=== PATIENT | female | born 1985 | race Caucasian/White ===

== ENCOUNTER 2017-05-09 16:32 | Emergency (ER) | payer SELFPAY ==
--- NOTE | 2017-05-09 17:22 | ER Document Report ---
ED General Pain - General Chief Complaint: Rib Pain Stated Complaint: FALL/HEADACHE,RIGHT SIDE RIB PAIN Time Seen by Provider: 05/09/17 17:11 Notes: 32 yo female c/o migraine headache x 3 days. right temporal, throbbing. Typical headache for patient. Usually takes Zomig for headache but is out of medication. + nausea, no vomiting. + photosensitivity. no fever or neck pain Pt also c/o right rib pain, reports she fell down stairs after drinking 2 nights ago. denies LOC or neck pain. hurts to breathe TRAVEL OUTSIDE OF THE [place] IN LAST 30 DAYS: No - HPI Similar symptoms previously: Yes Recently seen / treated by doctor: No - Related Data Allergies/Adverse Reactions: No Known Allergies Allergy (Verified 05/09/17 16:51) Past Medical History - General Information source: Patient - Social History Smoking Status: Current Every Day Smoker Frequency of alcohol use: Social Drug Abuse: None Lives with: Family Family History: Reviewed & Not Pertinent - Past Medical History Cardiac Medical History: Denies: Hx Heart Attack, Hx Hypertension Pulmonary Medical History: Denies: Hx Asthma Neurological Medical History: Reports: Hx Seizures - pnuemonia 2/3years old, had seizure X1. Denies: Hx Cerebrovascular Accident Renal/ Medical History: Denies: Hx Peritoneal Dialysis GI Medical History: Denies: Hx Hepatitis, Hx Hiatal Hernia, Hx Ulcer Infectious Medical History: Denies: Hx Hepatitis Past Surgical History: Reports: Hx Section - x 1, Hx Oral Surgery - wisdom teeth. Denies: Hx Hysterectomy, Hx Mastectomy, Hx Open Heart Surgery, Hx Pacemaker - Immunizations Hx Diphtheria, Pertussis, Tetanus Vaccination: No Review of Systems - Review of Systems Constitutional: No symptoms reported EENT: No symptoms reported Cardiovascular: No symptoms reported Respiratory: See HPI Gastrointestinal: No symptoms reported Genitourinary: No symptoms reported Female Genitourinary: No symptoms reported Musculoskeletal: See HPI Skin: No symptoms reported Hematologic/Lymphatic: No symptoms reported Neurological/Psychological: No symptoms reported Physical Exam - Vital signs Vitals: Temp Pulse Resp BP Pulse Ox 99.1 F 70 16 162/105 H 100 05/09/17 16:51 05/09/17 16:51 05/09/17 16:51 05/09/17 16:51 05/09/17 16:51 Interpretation: Normal - General General appearance: Alert In distress: None - HEENT Head: Normocephalic, Atraumatic Eyes: Normal Conjunctiva: Normal Extraocular movements intact: Yes Pupils: PERRL Tympanic membrane: Normal Mucous membranes: Moist Pharynx: Normal Neck: Normal, Supple - Respiratory Respiratory status: No respiratory distress Chest status: Tender Breath sounds: Normal Chest palpation: Tender - right lateral chest wall, Ecchymosis - left lateral chest wall - Cardiovascular Rhythm: Regular Heart sounds: Normal auscultation Murmur: No - Abdominal Inspection: Normal Distension: No distension Bowel sounds: Normal Tenderness: Nontender Organomegaly: No organomegaly - Back Back: Normal, Nontender - Extremities General upper extremity: Tender General lower extremity: Normal inspection, Nontender, Normal color, Normal ROM , Normal temperature, Normal weight bearing. No: Kiana's sign Arm: Ecchymosis - left upper arm - Neurological Neuro grossly intact: Yes Cognition: Normal Orientation: AAOx4 [place] Coma Scale Eye Opening: Spontaneous [place] Coma Scale Verbal: Oriented [place] Coma Scale Motor: Obeys Commands [place] Coma Scale Total: 15 Speech: Normal Motor strength normal: LUE, RUE, LLE, RLE Sensory: Normal - Psychological Associated symptoms: Normal affect, Normal mood - Skin Skin Temperature: Warm Skin Moisture: Dry Skin Color: Normal Course - Re-evaluation Re-evalutation: 05/09/17 18:19 xray negative for fracture. results reviewed with patient. 05/09/17 18:56 pt's headache improved after meds. low suspicion for stroke, SAB, meningitis. pt neurologically intact. pt stable for discharge - Vital Signs Vital signs: Temp Pulse Resp BP Pulse Ox 99.1 F 70 16 162/105 H 100 05/09/17 16:51 05/09/17 16:51 05/09/17 16:51 05/09/17 16:51 05/09/17 16:51 Discharge - Discharge Clinical Impression: Contusion of rib on right side Qualifiers: Encounter type: initial encounter Qualified Code(s): S20.211A - Contusion of right front wall of thorax, initial encounter Headache Qualifiers: Headache type: unspecified Headache chronicity pattern: acute headache Intractability: not intractable Qualified Code(s): R51 - Headache Instructions: Rib Contusion ([facility]), Headache ([facility]), Toradol Injection ([facility]), Reglan ([facility]), Antinausea Medication ([facility]), Imitrex Tablets ([facility]) Additional Instructions: Your xray is negative for fracture Take medication as prescribed Follow up with your primary if symptoms persist Return to ER for any worsening Prescriptions: Hydrocodone/Acetaminophen [Telferner 5-325 Tablet] 1 - 2 tab PO ASDIR PRN #15 tab PRN Reason: Ondansetron HCl [Zofran 8 mg Tablet] 8 mg PO Q6H PRN #20 tablet PRN Reason: Rizatriptan Benzoate [Maxalt] 10 mg PO ONCE PRN #9 tablet PRN Reason: Forms: Elevated Blood Pressure Referrals: MITESH CAPUTO MD [Primary Care Provider] - Follow up as needed
[2017-05-09] MEDS ORDERED: METOCLOPRAMIDE HCL INJ/PF 10 MG/2 ML SDV IV ONE (17:24)
[2017-05-09] MEDS ORDERED: DIPHENHYDRAMINE HCL 50 MG/ML VIAL IV ONE (17:24)
[2017-05-09] MEDS ORDERED: KETOROLAC TROMETHAMINE INJ/PF 30 MG/1 ML SDV IV ONE (17:24)
[2017-05-09] MEDS ORDERED: NORMAL SALINE 1000 ML 1,000 ML IV PRN (18:21)
--- NOTE | 2017-05-09 18:45 | RADIOLOGY REPORT (SQ) ---
EXAM DESCRIPTION: RIBS RIGHT W/PA CHEST COMPLETED DATE/TIME: 05/09/2017 6:36 pm REASON FOR STUDY: fell down stairs COMPARISON: None. TECHNIQUE: Frontal view of the chest and additional views of the right ribs acquired. NUMBER OF VIEWS: Three view.3 LIMITATIONS: None. FINDINGS: FRONTAL CXR: No pneumothorax. No pleural effusion. No atelectasis or infiltrates. RIBS: No displaced rib fractures. No lytic or blastic bony lesions. OTHER: No other significant finding. IMPRESSION: NO PNEUMOTHORAX. NO DISPLACED RIB FRACTURES. COMMENT: SITE OF TRAUMA/COMPLAINT MARKED/STAMP COMPLETED: NO. TECHNICAL DOCUMENTATION: JOB ID: [id number] [employer]- All Rights Reserved
[2017-05-09] MEDS ORDERED: OXYCODONE-ACETAMINOPHEN 5-325 MG TABLET PO ONE (20:15)
[2017-05-09 20:40] VITALS: BP 151/105
== END 2017-05-09 20:25 | disposition home or self-care (01) ==
LOC: ER 16:32
DX: S20.211A Contusion of right front wall of thorax, initial encounter (principal); S20.212A Contusion of left front wall of thorax, initial encounter; S40.022A Contusion of left upper arm, initial encounter; W10.9XXA Fall (on) (from) unspecified stairs and steps, initial encounter; G43.909 Migraine, unspecified, not intractable, without status migrainosus; F17.200 Nicotine dependence, unspecified, uncomplicated
CPT/HCPCS: 99283; 96361; 96374; 96375; 71101; J1200; J1885; J2765; J7030

== ENCOUNTER 2017-11-20 18:57 | Emergency (ER) | payer OTHER ==
[2017-11-20] MEDS ORDERED: KETOROLAC TROMETHAMINE INJ/PF 30 MG/1 ML SDV IV ONE (20:14)
--- NOTE | 2017-11-20 20:16 | ER Document Report ---
HPI - HPI Pain Level: 3 Notes: Patient is a 32-year-old female who presents to the ED complaining of nasal congestion/discharge, dry nonproductive cough, fever, LUX, body ache 1 day. Patient states that she is still eating and drinking without difficulties, but does have a decreased p.o. intake. She is still urinating normally having normal bowel movements. Patient has been using some [id number] meds for symptoms. She denies any significant past medical history including cardiopulmonary history and immunocompromised conditions. Patient denies any smoking or IV drug use. Denies any current headache, neck pain, sore throat, chest pain, palpitations, syncope, shortness of breath, wheeze, dyspnea, abdominal pain, nausea/vomiting/diarrhea, urinary retention, dysuria, hematuria , or rash. - ROS Systems Reviewed and Negative: Yes All other systems reviewed and negative - REPRODUCTIVE Reproductive: DENIES: : Past Medical History - Social History Smoking Status: Never Smoker Family History: Reviewed & Not Pertinent - Past Medical History Cardiac Medical History: Denies: Hx Heart Attack, Hx Hypertension Pulmonary Medical History: Denies: Hx Asthma Neurological Medical History: Reports: Hx Seizures - pnuemonia 2/3years old, had seizure X1. Denies: Hx Cerebrovascular Accident Renal/ Medical History: Denies: Hx Peritoneal Dialysis GI Medical History: Denies: Hx Hepatitis, Hx Hiatal Hernia, Hx Ulcer Infectious Medical History: Denies: Hx Hepatitis Past Surgical History: Reports: Hx Section - x 1, Hx Oral Surgery - wisdom teeth, Hx Tubal Ligation. Denies: Hx Hysterectomy, Hx Mastectomy, Hx Open Heart Surgery, Hx Pacemaker - Immunizations Hx Diphtheria, Pertussis, Tetanus Vaccination: No Vertical Provider Document - CONSTITUTIONAL Agree With Documented VS: Yes Notes: PHYSICAL EXAMINATION: GENERAL: Well-appearing, well-nourished and in no acute distress. A&Ox4. Answers questions appropriately. Moves comfortably w/o notable distress HEAD: Atraumatic, normocephalic. EYES: Pupils equal round and reactive to light, extraocular movements intact, sclera anicteric, conjunctiva are normal. ENT: EAC clear b/l. TM's intact b/l without erythema, fluid, or perforation. Nares patent and with clear discharge. oropharynx no erythema without exudates. No tonsilar hypertrophy without erythema or exudate. No palatine shift. Uvula midline. No tongue protrusion. No drooling, hoarseness, or airway compromise. Moist mucous membranes. No sinus tenderness. NECK: Normal range of motion, supple without lymphadenopathy. No rigidity/ meningismus. LUNGS: Breath sounds clear to auscultation bilaterally and equal. No wheezes rales or rhonchi. No retractions HEART: Regular rate and rhythm without murmurs, rubs, gallops. ABDOMEN: Soft, nontender, nondistended abdomen. No guarding, no rebound. No masses appreciated. Normal bowel sounds present. No CVA tenderness bilaterally. No hepatosplenomegaly. NEUROLOGICAL: Normal speech, normal gait. Normal sensory, motor exams PSYCH: Normal mood, normal affect. SKIN: Warm, Dry, normal turgor, no rashes or lesions noted. - INFECTION CONTROL TRAVEL OUTSIDE OF THE [place] IN LAST 30 DAYS: No - RESPIRATORY O2 Sat by Pulse Oximetry: 98 Course - Re-evaluation Re-evalutation: 11/20/17 20:15 Patient is an afebrile, well-hydrated, 32-year-old female who presents to the ED with acute URI, suspect influenza. Vitals are stable. PE is otherwise unremarkable. No labs or imaging warranted at this time based on H&P. Patient has no significant cardiopulmonary or immunocompromised medical conditions. Patient's lungs are clear to auscultation bilaterally without tachycardia, hypoxia, or tachypnea. Patient is tolerating p.o. without any difficulties. Thoroughly reviewed the risks, benefits, potential side effects, estimated cost without insurance with patient. After thorough review, patient declined Tamiflu at this time. Low suspicion for any meningitis, sepsis, peritonsillar/ pharyngeal abscess, respiratory compromise, severe dehydration, or other emergent systemic condition at this time. Patient is aware this condition can change from initial presentation and she needs to monitor symptoms closely. Conservative measures otherwise for symptoms. Recheck with your PCM in 3-5 days. Return to the ED with any worsening/concerning symptoms otherwise as reviewed in discharge. Patient is in agreement. - Vital Signs Vital signs: Temp Pulse Resp BP Pulse Ox 100.2 F 98 18 149/85 H 98 11/20/17 19:16 11/20/17 19:16 11/20/17 19:16 11/20/17 19:16 11/20/17 19:16 Discharge - Discharge Clinical Impression: Influenza Condition: Stable Disposition: HOME, SELF-CARE Instructions: Influenza ([facility]), Upper Respiratory Illness ([facility]) Additional Instructions: Maintain adequate fluid intake Take meds as directed tylenol/ibuprofen as needed over the counter cold medication as needed for symptoms Humidified air may help Wash your hands regularly Wear a mask when coughing F/u: with your PCM in 3-5 days for a recheck Return to the ED with any fever, worsening pain, chest pain, palpitations, syncope, worsening LUX, neck pain/stiffness, shortness of breath, wheezing, drooling, trouble swallowing/breathing, abdominal pain, n/v/d, rash, or worsening/concerning symptoms otherwise. Forms: Elevated Blood Pressure Referrals: [facility] [Provider Group] - Follow up as needed [facility] [Provider Group] - Follow up as needed
[2017-11-20] MEDS ORDERED: KETOROLAC TROMETHAMINE INJ/PF 30 MG/1 ML SDV IM ONE (20:21)
[2017-11-20 20:39] VITALS: BP 144/92
== END 2017-11-20 21:09 | disposition home or self-care (01) ==
LOC: ER 18:57
DX: J11.1 Influenza due to unidentified influenza virus with other respiratory manifestations (principal); R51 Headache; M79.1 Myalgia; Z98.51 Tubal ligation status
CPT/HCPCS: 99283; J1885

== ENCOUNTER 2018-02-22 12:24 | Emergency (ER) | payer OTHER ==
[2018-02-22 12:40] VITALS: BP 164/96
[2018-02-22] MEDS ORDERED: PREDNISONE 20 MG TABLET PO ONE (12:42)
[2018-02-22] MEDS ORDERED: ACETAMINOPHEN 325 MG TABLET PO ONE (12:42)
[2018-02-22] MEDS ORDERED: IPRATROPIUM/ALBUTEROL 0.5-2.5 MG/3 ML AMPUL NEB ONE (12:42)
--- NOTE | 2018-02-22 12:43 | ER Document Report ---
HPI - HPI Patient complains to provider of: Cough Onset: Other - 10 days Onset/Duration: Persistent Quality of pain: Achy Pain Level: 4 Context: Patient presents complaining of nonproductive cough for the past 10 days. Patient reports sinus congestion with frontal headache pain. Patient denies any fever nausea or vomiting. Associated Symptoms: Nonproductive cough, Sinus pain/drainage. denies: Earache , Fever, Nausea Exacerbated by: Denies Relieved by: Denies Similar symptoms previously: No Recently seen / treated by doctor: No - ROS ROS below otherwise negative: Yes Systems Reviewed and Negative: Yes All other systems reviewed and negative - CONSTITUTIONAL Constitutional: DENIES: Fever, Chills - EENT EENT: REPORTS: Congestion - CARDIOVASCULAR Cardiovascular: DENIES: Chest pain - RESPIRATORY Respiratory: REPORTS: Coughing. DENIES: Trouble Breathing - GASTROINTESTINAL Gastrointestinal: DENIES: Nausea, Patient vomiting - REPRODUCTIVE Reproductive: DENIES: : - MUSCULOSKELETAL Musculoskeletal: DENIES: Back Pain, Neck Pain - DERM Skin Color: Normal Skin Problems: None Past Medical History - General Information source: Patient - Social History Smoking Status: Never Smoker Frequency of alcohol use: Occasional Drug Abuse: None Occupation: [employer] service Family History: Reviewed & Not Pertinent - Past Medical History Cardiac Medical History: Denies: Hx Heart Attack, Hx Hypertension Pulmonary Medical History: Denies: Hx Asthma Neurological Medical History: Reports: Hx Migraine, Hx Seizures - pnuemonia 2/ 3years old, had seizure X1. Denies: Hx Cerebrovascular Accident Renal/ Medical History: Denies: Hx Peritoneal Dialysis GI Medical History: Denies: Hx Hepatitis, Hx Hiatal Hernia, Hx Ulcer Infectious Medical History: Denies: Hx Hepatitis Past Surgical History: Reports: Hx Section - x 1, Hx Oral Surgery - wisdom teeth, Hx Tubal Ligation. Denies: Hx Hysterectomy, Hx Mastectomy, Hx Open Heart Surgery, Hx Pacemaker - Immunizations Hx Diphtheria, Pertussis, Tetanus Vaccination: No Vertical Provider Document - CONSTITUTIONAL Agree With Documented VS: Yes Exam Limitations: No Limitations General Appearance: WD/WN, No Apparent Distress - INFECTION CONTROL TRAVEL OUTSIDE OF THE [place] IN LAST 30 DAYS: No - HEENT HEENT: Atraumatic, Normal ENT Exam, Normocephalic - NECK Neck: Normal Inspection, Supple. negative: Lymphadenopathy-Left, Lymphadenopathy-Right - RESPIRATORY Respiratory: No Respiratory Distress, Chest Non-Tender, Wheezing - CARDIOVASCULAR Cardiovascular: Regular Rate, Regular Rhythm, No Murmur. negative: Tachycardia - BACK Back: Normal Inspection - MUSCULOSKELETAL/EXTREMETIES Musculoskeletal/Extremeties: MAEW - NEURO Level of Consciousness: Awake, Alert, Appropriate Motor/Sensory: No Motor Deficit - DERM Integumentary: Warm, Dry, No Rash Course - Re-evaluation Re-evalutation: 02/22/18 13:21 Patient with good air movement bilaterally, decreased wheezing. Chest x-ray reviewed, no concern for pneumonia at this time. Patient nontoxic in appearance with stable vital signs. - Vital Signs Vital signs: Temp Pulse Resp BP Pulse Ox 98.5 F 66 18 164/96 H 99 02/22/18 12:38 02/22/18 12:38 02/22/18 12:38 02/22/18 12:38 02/22/18 12:38 - Diagnostic Test Radiology reviewed: Pending, Image reviewed Discharge - Discharge Clinical Impression: Wheezing Upper respiratory infection Qualifiers: URI type: unspecified URI Qualified Code(s): J06.9 - Acute upper respiratory infection, unspecified Condition: Stable Disposition: HOME, SELF-CARE Additional Instructions: Return immediately for any new or worsening symptoms Followup with your primary care provider, call tomorrow to make a followup appointment UPPER RESPIRATORY ILLNESS: You have a viral infection of the respiratory passages -- a "cold." This common infection causes nasal congestion, drainage, and often sore throat and cough. It is highly contagious. The disease usually lasts about 10 to 14 days. There is no "cure" for the viral infection -- it must run its course. If there is a complication, such as bacterial infection in the nose, sinuses, middle ear, or bronchial tubes, antibiotics may be required. The antibiotics won't affect the virus. Drink plenty of fluids. A humidifier may help. An expectorant medication or decongestant may make you more comfortable. Use acetaminophen or ibuprofen for fever or aches. See the doctor if fever persists over two days, if there is any significant worsening of your symptoms, or if you simply fail to improve as expected. BRONCHOSPASM: You have tightness in the bronchial tubes, called bronchospasm. This often occurs with bronchial infections. Allergies, inhaled chemicals, and polluted or cold air can also provoke bronchospasm. It's more likely in patients with asthma in the family. Emergency treatment of bronchospasm may include adrenaline shots or bronchodilator aerosol. You may feel lightheaded and have a rapid pulse for an hour or two. Rest and get plenty of fluids. At home, we'll treat you with a bronchodilator inhaler. Antibiotics and corticosteroids may be required for some patients. Until you recover, avoid chemical fumes, dusts, pollens, and exercising in very cold or dry air. If you smoke, stop now!! If you develop a fever, increased wheezing, chest pain, or severe shortness of breath, you should contact the doctor immediately. INHALED BRONCHODILATORS: You have received a treatment of and/or prescription for an inhaled bronchodilator -- a medication which stimulates the airways in the lung to dilate. This improves the flow of air in asthma, bronchitis, and emphysema. These medicines have some similarity to adrenaline, and can cause similar side effects: shakiness, racing heart, and a sense of nervousness. These side effects decrease with time. Contact your doctor if these side effects are severe. Do not over-use the medicine. Too-frequent use of the inhaler may make it ineffective. Call your doctor if the inhaler is not controlling your symptoms at the prescribed doses. STEROID MEDICATION: You have been given an injection of or oral medicine of the cortisone/ steroid class. This medication is used to control inflammation or allergy. Fred t is usually only given for a short period of time, until the acute process subsides. There are usually no side effects from short-term use of cortisone-like medications. Some persons feel an increased sense of well-being and are not sleepy at bedtime. Long-term use of cortisone medications is best avoided, unless required for a severe condition. If your condition does not remit, or relapses after the course of corticosteroid medication, you should consult your physician. USE OF ACETAMINOPHEN (Tylenol): Acetaminophen may be taken for pain relief or fever control. It's much safer than aspirin, offering a wider range of "safe" dosages. It is safe during . Some brand names are Tylenol, Panadol, Datril, Anacin 3, Tempra, and Liquiprin. Acetaminophen can be repeated every four hours. The following are maximum recommended dosages: >89 pounds or adults 650 mg to 900 mg Acetaminophen can be repeated every four hours. Maximum dose not to exceed 4000 mg a day. FOLLOW-UP CARE: If you have been referred to a physician for follow-up care, call the physician s office for an appointment as you were instructed or within the next two days. If you experience worsening or a significant change in your symptoms, notify the physician immediately or return to the Emergency Department at any time for re-evaluation. Prescriptions: Albuterol Sulfate [Ventolin Hfa] 2 puff IH Q4HP PRN #17 gm PRN Reason: Guaifenesin/Pseudoephedrne HCl [Mucinex D ER Tablet] 1 each PO Q12 PRN #12 tab.er.12h PRN Reason: Naproxen [Naprosyn 250 Nmg Tablet] 1 tab PO BID #14 tablet Prednisone [Deltasone 10 mg Tablet] 10 mg PO ASDIR PRN #21 tablet PRN Reason: Forms: Return to Work Referrals: EPHRAIM AJ MD [Primary Care Provider] - Follow up as needed MITESH CAPUTO MD [EMERITUS] - Follow up tomorrow
--- NOTE | 2018-02-22 13:31 | RADIOLOGY REPORT (SQ) ---
EXAM DESCRIPTION: CHEST 2 VIEWS COMPLETED DATE/TIME: 02/22/2018 1:13 pm REASON FOR STUDY: cough COMPARISON: None. EXAM PARAMETERS: NUMBER OF VIEWS: two views TECHNIQUE: Digital Frontal and Lateral radiographic views of the chest acquired. RADIATION DOSE: NA LIMITATIONS: none FINDINGS: LUNGS AND PLEURA: No opacities, masses or pneumothorax. No pleural effusion. MEDIASTINUM AND HILAR STRUCTURES: No masses or contour abnormalities. HEART AND VASCULAR STRUCTURES: Heart normal size. No evidence for failure. BONES: No acute findings. HARDWARE: None in the chest. OTHER: No other significant finding. IMPRESSION: NO ACUTE RADIOGRAPHIC FINDING IN THE CHEST. TECHNICAL DOCUMENTATION: JOB ID: [id number] [employer]- All Rights Reserved Reading location - IP/workstation name: [email or web address]
== END 2018-02-22 13:29 | disposition home or self-care (01) ==
LOC: ER 12:24
DX: J06.9 Acute upper respiratory infection, unspecified (principal); R06.2 Wheezing; R51 Headache; Z98.51 Tubal ligation status
CPT/HCPCS: 94640; 99283; 71046; J7512; J7620

== ENCOUNTER 2018-06-01 09:08 | Emergency (ER) | payer SELFPAY ==
[2018-06-01 09:51] LABS: AMORPHOUS SEDIMENT,URINE TRACE /HPF; APPEARANCE,URINE SLIGHTLY-CLOUDY; BILIRUBIN,URINE NEGATIVE (NEGATIVE); GLUCOSE, URINE NEGATIVE (NEGATIVE); KETONES,URINE NEGATIVE (NEGATIVE); LEUKOCYTE ESTERASE,URINE NEGATIVE (NEGATIVE); NITRITE,URINE NEGATIVE (NEGATIVE); PROTEIN,URINE NEGATIVE (NEGATIVE); URINE SPECIFIC GRAVITY 1.009; UROBILINOGEN,URINE NEGATIVE mg/dL (<2.0)
[2018-06-01 09:52] LABS: COLOR,URINE YELLOW
--- NOTE | 2018-06-01 10:20 | ER Document Report ---
ED Medical Screen (RME) - General Chief Complaint: Pain All Over Stated Complaint: STOMACH PAIN Time Seen by Provider: 06/01/18 10:12 Mode of Arrival: Ambulatory Information source: Patient Notes: This is a 33-year-old female with no medical problems who presents to the emergency room with upper abdominal discomfort, difficulty breathin. Patient states that she felt nauseated yesterday. She states that approximately 9 PM, she started to get squeezing from sensation in both sides of her upper abdomen. She states it got so severe she felt like she was having difficulty breathing. She states that it gradually eased up and got better. She still feels a little uncomfortable. She describes the discomfort as "like him being squeezed". She has had similar episodes for the past 2 years and states that they occur mostly at night. She denies dysuria, fever, chills, blood in the stool, vaginal discharge, family history of Crohn's/ulcerative colitis/IBD. She is 1 para 1 and her last normal menstrual period was May 12 TRAVEL OUTSIDE OF THE [place] IN LAST 30 DAYS: No - Related Data Allergies/Adverse Reactions: No Known Allergies Allergy (Verified 06/01/18 09:08) Past Medical History - Social History Chew tobacco use (# tins/day): No Frequency of alcohol use: Occasional Drug Abuse: None - Past Medical History Cardiac Medical History: Denies: Hx Heart Attack, Hx Hypertension Pulmonary Medical History: Denies: Hx Asthma Neurological Medical History: Reports: Hx Migraine, Hx Seizures - pnuemonia 2/ 5years old, had seizure X1. Denies: Hx Cerebrovascular Accident Renal/ Medical History: Denies: Hx Peritoneal Dialysis GI Medical History: Denies: Hx Hepatitis, Hx Hiatal Hernia, Hx Ulcer Infectious Medical History: Denies: Hx Hepatitis Past Surgical History: Reports: Hx Section - x 1, Hx Oral Surgery - wisdom teeth, Hx Tubal Ligation. Denies: Hx Hysterectomy, Hx Mastectomy, Hx Open Heart Surgery, Hx Pacemaker - Immunizations Hx Diphtheria, Pertussis, Tetanus Vaccination: No Physical Exam - Vital signs Vitals: Temp Pulse Resp BP Pulse Ox 98.8 F 63 18 146/93 H 100 06/01/18 09:22 06/01/18 09:22 06/01/18 09:22 06/01/18 09:22 06/01/18 09:22 Course - Vital Signs Vital signs: Temp Pulse Resp BP Pulse Ox 98.8 F 63 18 146/93 H 100 06/01/18 09:22 06/01/18 09:22 06/01/18 09:22 06/01/18 09:22 06/01/18 09:22 Doctor's Discharge - Discharge Referrals: EPHRAIM AJ MD [Primary Care Provider] - Follow up as needed
[2018-06-01 11:26] LABS: ALANINE AMINOTRANSFERASE 172 U/L (9-52); ALBUMIN 4.2 g/dL (3.5-5.0); ALKALINE PHOSPHATASE 70 U/L (38-126); ANION GAP 9 (5-19); ASPARTATE AMINO TRANSFERASE 181 U/L (14-36); BILIRUBIN,DIRECT 0.2 mg/dL (0.0-0.4); BILIRUBIN,TOTAL 0.9 mg/dL (0.2-1.3); BLOOD UREA NITROGEN 9 mg/dL (7-20); CALCIUM 9.6 mg/dL (8.4-10.2); CARBON DIOXIDE 28 mmol/L (22-30); CHLORIDE 106 mmol/L (98-107); GLUCOSE 93 mg/dL (75-110); POTASSIUM 4.7 mmol/L (3.6-5.0); SODIUM 143.2 mmol/L (137-145); TOTAL PROTEIN 7.2 g/dL (6.3-8.2)
[2018-06-01 11:51] LABS: LIPASE 5416.3 U/L (23-300)
[2018-06-01 12:12] LABS: ABSOLUTE LYMPHOCYTES (AUTO) 1.9 10^3/uL (0.5-4.7); ABSOLUTE MONOCYTES (AUTO) 0.7 10^3/uL (0.1-1.4); ABSOLUTE NEUT (AUTO) 4.7 10^3/uL (1.7-8.2); BASOPHILS % (AUTO) 0.6 % (0-2); EOSINOPHILS % (AUTO) 0.4 % (0-6); HEMATOCRIT 39.6 % (36.0-47.0); HEMOGLOBIN 13.5 g/dL (12.0-15.5); LYMPHOCYTES % (AUTO) 25.4 % (13-45); MEAN CORPUSCULAR HEMOGLOBIN 29.4 pg (27.0-33.4); MEAN CORPUSCULAR HGB CONC 34.1 g/dL (32.0-36.0); MEAN CORPUSCULAR VOLUME 86 fl (80-97); MONOCYTES % (AUTO) 9.3 % (3-13); PLATELET COUNT 202 10^3/uL (150-450); RED CELL DISTRIBUTION WIDTH 12.9 % (11.5-14.0); SEGMENTED NEUTROPHILS % (AUTO) 64.3 % (42-78); TOTAL CELLS COUNTED % (AUTO) 100 %; WHITE BLOOD COUNT 7.4 10^3/uL (4.0-10.5)
--- NOTE | 2018-06-01 13:38 | ER Document Report ---
ED GI/ - General Mode of Arrival: Ambulatory Information source: Patient TRAVEL OUTSIDE OF THE [place]. IN LAST 30 DAYS: No <LACHO DELONG - Last Filed: 06/01/18 14:22> <JACQUIE HEDRICK - Last Filed: 06/01/18 16:51> - General Chief Complaint: Pain All Over Stated Complaint: STOMACH PAIN Time Seen by Provider: 06/01/18 10:12 Notes: 33-year-old female that presents to the emergency department today with complaints of abdominal pain. Patient has had this pain for about 1 year and states that the pain is off and on, however last night was the worst attack she has had. Patient states she has been able to correlate the pain to happening after she eats. Patient states the pain is "under her boobs" bilaterally and radiates to her back. Patient states it feels like something is "squeezing her ". (LACHO DELONG) - Related Data Allergies/Adverse Reactions: No Known Allergies Allergy (Verified 06/01/18 09:08) Past Medical History - General Information source: Patient - Social History Smoking Status: Former Smoker Cigarette use (# per day): No Chew tobacco use (# tins/day): No Frequency of alcohol use: Occasional Drug Abuse: None Family History: Reviewed & Not Pertinent Patient has suicidal ideation: No Patient has homicidal ideation: No Neurological Medical History: Reports: Hx Migraine, Hx Seizures - pnuemonia 2/ 5years old, had seizure X1 Past Surgical History: Reports: Hx Section - x 1, Hx Oral Surgery - wisdom teeth, Hx Tubal Ligation - Immunizations Hx Diphtheria, Pertussis, Tetanus Vaccination: No <LACHO DELONG - Last Filed: 06/01/18 14:22> Review of Systems - Review of Systems Constitutional: No symptoms reported EENT: No symptoms reported Cardiovascular: No symptoms reported Respiratory: No symptoms reported Gastrointestinal: See HPI, Abdominal pain Genitourinary: No symptoms reported Female Genitourinary: No symptoms reported Musculoskeletal: No symptoms reported Skin: No symptoms reported Hematologic/Lymphatic: No symptoms reported Neurological/Psychological: No symptoms reported -: Yes All other systems reviewed and negative <LACHO DELONG - Last Filed: 06/01/18 14:22> Physical Exam <LACHO DELONG - Last Filed: 06/01/18 14:22> <JACQUIE HEDRICK - Last Filed: 06/01/18 16:51> - Vital signs Vitals: Temp Pulse Resp BP Pulse Ox 98.8 F 63 18 146/93 H 100 06/01/18 09:22 06/01/18 09:22 06/01/18 09:22 06/01/18 09:22 06/01/18 09:22 - Notes Notes: Physical Exam: General: Alert, appears well. HEENT: Normocephalic. Atraumatic. PERRL. Extraocular movements intact. Oropharynx clear. Neck: Supple. Non-tender. Respiratory: No respiratory distress. Clear and equal breath sounds bilaterally. Cardiovascular: Regular rate and rhythm. Abdominal: Right upper quadrant and epigastric tenderness palpation. No left upper quadrant tenderness to palpation. Obese. No distension. Normal Bowel Sounds. Back: Non-tender. No deformity or step off. Extremities: Moves all four extremities. Upper extremities: Normal inspection. Normal ROM. Lower extremities: Normal inspection. No edema. Normal ROM. Neurological: Normal cognition. AAOx4. Normal speech. Psychological: Normal affect. Normal Mood. Skin: Warm. Dry. Normal color. (LACHO DELONG) Course - Laboratory Result Diagrams: 06/01/18 10:44 06/01/18 10:44 <LACHO DELONG - Last Filed: 06/01/18 14:22> - Laboratory Result Diagrams: 06/01/18 10:44 06/01/18 10:44 - Diagnostic Test Radiology reviewed: Reports reviewed - Gallbladder ultrasound shows gallstones with no other abnormalities. - Consults Dr. Blanco Time consulted: 15:15 Consulted provider: other - Will accept at [facility] on Dr. Waggoner's service. - Transfer of Care Care transferred to following provider: Dr. Wheeler <JACQUIE HEDRICK - Last Filed: 06/01/18 16:51> - Vital Signs Vital signs: Temp Pulse Resp BP Pulse Ox 99.0 F 68 20 144/99 H 99 06/01/18 16:06 06/01/18 16:06 06/01/18 16:06 06/01/18 16:06 06/01/18 16:06 - Laboratory Laboratory results interpreted by me: 06/01/18 10:44 AST 181 H ALT 172 H Lipase 5416.3 H - Transfer of Care Notes: 06/01/18 16:51 Patient is pending transfer to [facility] when bed becomes available. At this time she is n.p.o., and has IV fluids running. ( JACQUIE HEDRICK) Discharge <LACHO DELONG - Last Filed: 06/01/18 14:22> <JACQUIE HEDRICK - Last Filed: 06/01/18 16:51> - Discharge Clinical Impression: Acute gallstone pancreatitis Condition: Stable Disposition: [facility] Referrals: EPHRAIM AJ MD [ACTIVE STAFF] - Follow up as needed Scribe Attestation: 06/01/18 14:17 I personally performed the services described in the documentation, reviewed and edited the documentation which was dictated to the scribe in my presence, and it accurately records my words and actions. (JACQUIE HEDRICK) Scribe Documentation - Scribe Written by Scribe:: Preston Holcomb, 06/01/2018 1426 acting as scribe for :: See <LACHO DELONG - Last Filed: 06/01/18 14:22>
--- NOTE | 2018-06-01 14:36 | RADIOLOGY REPORT (SQ) ---
EXAM DESCRIPTION: U/S ABDOMEN LIMITED W/O DOP COMPLETED DATE/TIME: 06/01/2018 2:14 pm REASON FOR STUDY: Upper abdominal pain, elevated lipase and LFTs COMPARISON: None. TECHNIQUE: Dynamic and static grayscale images acquired of the abdomen and recorded on PACS. Beao thais selected color Doppler and spectral images recorded. LIMITATIONS: None. FINDINGS: PANCREAS: No masses. Visualized pancreatic duct normal caliber. LIVER: No masses. Echotexture normal. LIVER VASCULATURE: Normal directional flow of the main portal vein and hepatic veins. GALLBLADDER: Echodensity along the dependent wall of gallbladder consistent with gallstones. No thic kening of gallbladder wall. No pericholecystic fluid collection. ULTRASOUND-DETECTED COTE'S SIGN: Negative. INTRAHEPATIC DUCTS AND COMMON DUCT: CBD and intrahepatic ducts normal caliber. No filling defects. INFERIOR VENA CAVA: Normal flow. AORTA: No aneurysm. RIGHT KIDNEY: Normal size. Normal echogenicity. No solid or suspicious masses. No hydronephrosis. No calcifications. PERITONEAL AND RIGHT PLEURAL SPACE: No ascites or effusions. OTHER: No other significant finding. IMPRESSION: GALLSTONES. OTHERWISE NORMAL RIGHT UPPER QUADRANT ULTRASOUND. TECHNICAL DOCUMENTATION: JOB ID: [id number] [employer]- All Rights Reserved Reading location - IP/workstation name: [email or web address]
[2018-06-01] MEDS ORDERED: DEXTROSE 5%-NORMAL SALINE 1,000 ML IV ONE (14:56)
[2018-06-01 22:02] VITALS: BP 139/97
--- NOTE | 2018-06-01 23:39 | ER Document Report ---
Doctor's Note Notes: 06/01/18 23:39 06/01/18 22:32 Patient reevaluated upon transfer team arrival. She remains pain-free. Vital signs stable. She is stable for transfer.
== END 2018-06-01 22:05 | disposition short-term general hospital (02) ==
LOC: ER 09:08
DX: K85.10 Biliary acute pancreatitis without necrosis or infection (principal); M79.1 Myalgia; R10.10 Upper abdominal pain, unspecified; R11.0 Nausea; Z98.51 Tubal ligation status
CPT/HCPCS: 36415; 76705; 80053; 81001; 81025; 83690; 85025; 96360; 96361; 99285

== ENCOUNTER 2018-09-05 19:17 | Emergency (ER) | payer MEDICAID ==
[2018-09-05 20:05] VITALS: BP 134/85
--- NOTE | 2018-09-05 21:57 | RADIOLOGY REPORT (SQ) ---
EXAM DESCRIPTION: XR KNEE 4 OR MORE VIEWS COMPLETED DATE/TME: 09/05/2018 20:33 CLINICAL HISTORY: 33 years, Female, pain.. [place] [employer] [place] COMPARISON: None. NUMBER OF VIEWS: Four TECHNIQUE: One AP, two oblique and one lateral view of the left knee joint. LIMITATIONS: None. FINDINGS: Knee joint alignment is maintained. No suprapatellar joint effusion. No osseous lesion. Soft tissues are within normal limits. IMPRESSION: No acute osseous finding of the left knee. 2011 [employer]- All Rights Reserved
--- NOTE | 2018-09-05 22:07 | ER Document Report ---
ED Extremity Problem, Lower - General Chief Complaint: Knee Pain Stated Complaint: KNEE PAIN Time Seen by Provider: 09/05/18 21:24 Mode of Arrival: Ambulatory Information source: Patient Notes: Patient is a 33-year-old female who presents to the ER today for left knee pain after [place] [employer] [place] a couple of days ago, feeling a pop when she jumped into the foam pit and feeling weakness afterwards. Patient states since that time she has had pain and weakness, feeling like it is going to give out when she walks up or down steps. She states that it does radiate somewhat down the belle. She denies any numbness or tingling, pain anywhere else. TRAVEL OUTSIDE OF THE [place] IN LAST 30 DAYS: No - Related Data Allergies/Adverse Reactions: No Known Allergies Allergy (Verified 06/01/18 09:08) Past Medical History - General Information source: Patient - Social History Smoking Status: Unknown if Ever Smoked Family History: Reviewed & Not Pertinent Patient has suicidal ideation: No Patient has homicidal ideation: No - Past Medical History Cardiac Medical History: Denies: Hx Heart Attack, Hx Hypertension Pulmonary Medical History: Denies: Hx Asthma Neurological Medical History: Reports: Hx Migraine, Hx Seizures - pnuemonia 2/ 5years old, had seizure X1. Denies: Hx Cerebrovascular Accident Renal/ Medical History: Denies: Hx Peritoneal Dialysis GI Medical History: Denies: Hx Hepatitis, Hx Hiatal Hernia, Hx Ulcer Infectious Medical History: Denies: Hx Hepatitis Past Surgical History: Reports: Hx Section - x 1, Hx Oral Surgery - wisdom teeth, Hx Tubal Ligation. Denies: Hx Hysterectomy, Hx Mastectomy, Hx Open Heart Surgery, Hx Pacemaker - Immunizations Hx Diphtheria, Pertussis, Tetanus Vaccination: No Review of Systems - Review of Systems Constitutional: No symptoms reported EENT: No symptoms reported Cardiovascular: No symptoms reported Respiratory: No symptoms reported Gastrointestinal: No symptoms reported Genitourinary: No symptoms reported Female Genitourinary: No symptoms reported Musculoskeletal: See HPI Skin: No symptoms reported Hematologic/Lymphatic: No symptoms reported Neurological/Psychological: No symptoms reported Physical Exam - Vital signs Vitals: Temp Pulse Resp BP Pulse Ox 98.4 F 64 22 H 134/85 H 99 09/05/18 20:04 09/05/18 20:04 09/05/18 20:04 09/05/18 20:04 09/05/18 20:04 - Notes Notes: PHYSICAL EXAMINATION: GENERAL: Well-appearing and in no acute distress. HEAD: Atraumatic, normocephalic. EYES: Pupils equal round and reactive to light, extraocular movements intact, sclera anicteric, conjunctiva are normal. NECK: Normal range of motion, supple without lymphadenopathy LUNGS: CTAB and equal. No wheezes rales or rhonchi. HEART: Regular rate and rhythm without murmurs EXTREMITIES: Tender to lateral left anterior knee, pain with flexion, valgus stressing, otherwise normal range of motion, no pitting edema. No cyanosis. NEUROLOGICAL: Cranial nerves grossly intact. Normal sensory/motor exams. PSYCH: Normal mood, normal affect. SKIN: Warm, Dry, normal turgor, no rashes or lesions noted Course - Re-evaluation Re-evalutation: 09/05/18 22:09 Patient placed in knee immobilizer brace, will be sent home with a prescription for ibuprofen, given crutches. Given orthopedic follow-up. - Vital Signs Vital signs: Temp Pulse Resp BP Pulse Ox 98.4 F 64 22 H 134/85 H 99 09/05/18 20:04 09/05/18 20:04 09/05/18 20:04 09/05/18 20:04 09/05/18 20:04 Discharge - Discharge Clinical Impression: Left knee injury Qualifiers: Encounter type: initial encounter Qualified Code(s): S89.92XA - Unspecified injury of left lower leg, initial encounter Condition: Stable Disposition: HOME, SELF-CARE Instructions: Knee Immobilizing Splint ([facility]), Suspected Internal Knee Injury ( [facility]), Use of Crutches ([facility]), Ice & Elevation ([facility]) Additional Instructions: Return immediately for any new or worsening symptoms. Follow up with orthopedics, call tomorrow to make followup appointment. Prescriptions: Ibuprofen [Motrin 800 mg Tablet] 800 mg PO Q8H PRN #30 tab PRN Reason: Forms: Return to Work Referrals: MILAN QUINN MD [ACTIVE STAFF] - Follow up as needed
[2018-09-05] MEDS ORDERED: IBUPROFEN 800 MG TABLET PO ONE (22:10)
== END 2018-09-05 23:05 | disposition home or self-care (01) ==
LOC: ER 19:17
DX: S89.92XA Unspecified injury of left lower leg, initial encounter (principal); M25.562 Pain in left knee; X58.XXXA Exposure to other specified factors, initial encounter; R53.1 Weakness
CPT/HCPCS: 99283; 73564; L1830; J3490

== ENCOUNTER 2018-11-12 16:46 | Emergency (ER) | payer MEDICAID ==
[2018-11-12] MEDS ORDERED: VALACYCLOVIR HCL 500 MG TABLET PO ONE (19:11)
[2018-11-12] MEDS ORDERED: LIDOCAINE 5% (700 MG) TRANSDERMAL ADH..PATCH TP ONE (19:11)
--- NOTE | 2018-11-12 19:14 | ER Document Report ---
HPI - HPI Patient complains to provider of: Skin rash Time Seen by Provider: 11/12/18 18:42 Onset: Other - 10 days Onset/Duration: Persistent Quality of pain: Burning Pain Level: 1 Context: Patient complains of dry, itchy, burning rash to left flank area. Patient states rash started 10 days ago and the initial lesions have started to dry up but she has developed new lesions that are fluid-filled and look like blisters. Patient is currently 13 weeks . Patient did see her BSW for this complaint last week. Patient states that she is on as needed acyclovir for HSV 2, but states that she has not been taking it recently. Associated Symptoms: Other - Skin rash. denies: Fever Exacerbated by: Denies Relieved by: Denies Similar symptoms previously: No Recently seen / treated by doctor: Yes - ROS ROS below otherwise negative: Yes Systems Reviewed and Negative: Yes All other systems reviewed and negative - CONSTITUTIONAL Constitutional: DENIES: Fever, Chills - NEURO Neurology: DENIES: Headache, Vision blurred - REPRODUCTIVE LMP: July 2018 Reproductive: REPORTS: : - MUSCULOSKELETAL Musculoskeletal: REPORTS: Back Pain - DERM Skin Color: Normal Skin Problems: Rash Past Medical History - General Information source: Patient - Social History Smoking Status: Never Smoker Chew tobacco use (# tins/day): No Frequency of alcohol use: None Drug Abuse: None Occupation: Property management Lives with: Spouse/Significant other Family History: Reviewed & Not Pertinent Patient has suicidal ideation: No Patient has homicidal ideation: No Pulmonary Medical History: Denies: Hx Asthma Neurological Medical History: Reports: Hx Migraine, Hx Seizures - pnuemonia 2/3years old, had seizure X1. Denies: Hx Cerebrovascular Accident Renal/ Medical History: Denies: Hx Peritoneal Dialysis Infectious Medical History: Reports: Other - HSV 2. Denies: Hx Hepatitis Past Surgical History: Reports: Hx Section - x 1, Hx Oral Surgery - wisdom teeth, Hx Tubal Ligation - Immunizations Hx Diphtheria, Pertussis, Tetanus Vaccination: No Vertical Provider Document - CONSTITUTIONAL Agree With Documented VS: Yes Exam Limitations: No Limitations General Appearance: WD/WN, No Apparent Distress - INFECTION CONTROL TRAVEL OUTSIDE OF THE [place] IN LAST 30 DAYS: No - HEENT HEENT: Atraumatic, Normocephalic - NECK Neck: Normal Inspection - RESPIRATORY Respiratory: Breath Sounds Normal, No Respiratory Distress - CARDIOVASCULAR Cardiovascular: Regular Rate, Regular Rhythm - GI/ABDOMEN Gastrointestinal: Abdomen Soft - BACK Back: Normal Inspection - MUSCULOSKELETAL/EXTREMETIES Musculoskeletal/Extremeties: MILAGROS KELLY - NEURO Level of Consciousness: Awake, Alert, Appropriate Motor/Sensory: No Motor Deficit - DERM Integumentary: Warm, Dry, Rash - Patient with crusted skin lesions to left lower back area with additional vesicular lesions concerning for a dermatome distribution pattern Course - Re-evaluation Re-evalutation: 11/12/18 19:12 Patient does have skin lesions worrisome for herpes zoster. No concern for varus sella at this time. Patient with only localized patch of lesions. - Vital Signs Vital signs: Temp Pulse Resp BP Pulse Ox 99.9 F 86 18 122/80 98 11/12/18 16:58 11/12/18 16:58 11/12/18 16:58 11/12/18 16:58 11/12/18 16:58 Discharge - Discharge Clinical Impression: Shingles Qualifiers: Herpes zoster complications: without complications Qualified Code(s): B02.9 - Zoster without complications Condition: Stable Disposition: HOME, SELF-CARE Instructions: Shingles ([facility]) Additional Instructions: Return immediately for any new or worsening symptoms Followup with your primary care provider, call tomorrow to make a followup appointment You may apply topical lidocaine patches for symptom relief. These medications are [id number]. Follow-up with your BSW provider, call Wednesday for an appointment Prescriptions: RX: Valacyclovir HCl [Valacyclovir] 1,000 mg PO TID #21 tablet Referrals: [facility] [Provider Group] - 11/14/18
[2018-11-12 19:49] VITALS: BP 112/81
== END 2018-11-12 19:49 | disposition home or self-care (01) ==
LOC: ER 16:46
DX: O98.511 Other viral diseases complicating pregnancy, first trimester (principal); B02.9 Zoster without complications; Z3A.13 13 weeks gestation of pregnancy
CPT/HCPCS: 99282; J3490 ×2

== ENCOUNTER 2019-01-29 15:56 | Outpatient (CLI) | payer MEDICAID ==
[2019-01-29 16:33] LABS: APPEARANCE,URINE SLIGHTLY-CLOUDY; BILIRUBIN,URINE NEGATIVE (NEGATIVE); COLOR,URINE YELLOW; GLUCOSE, URINE NEGATIVE (NEGATIVE); KETONES,URINE NEGATIVE (NEGATIVE); LEUKOCYTE ESTERASE,URINE NEGATIVE (NEGATIVE); NITRITE,URINE NEGATIVE (NEGATIVE); PROTEIN,URINE NEGATIVE (NEGATIVE); URINE SPECIFIC GRAVITY 1.017; UROBILINOGEN,URINE NEGATIVE mg/dL (<2.0)
[2019-01-29 16:43] LABS: URINE AMPHETAMINES SCREEN NEGATIVE; URINE BARBITURATES SCREEN NEGATIVE; URINE BENZODIAZEPINES SCREEN NEGATIVE; URINE COCAINE SCREEN NEGATIVE; URINE MARIJUANA (THC) SCREEN NEGATIVE; URINE METHADONE SCREEN NEGATIVE; URINE PHENCYCLIDINE SCREEN NEGATIVE
== END 2019-01-29 17:05 | disposition home or self-care (01) ==
LOC: LC 15:56
PROVIDERS: ATTEND Obstetrics & Gynecology Gynecology
PROC: 4A1HXCZ Monitoring of Products of Conception, Cardiac Rate, External Approach (ICD-10-PCS; principal; 2019-01-29)
DX: Z34.92 Encounter for supervision of normal pregnancy, unspecified, second trimester (principal)
CPT/HCPCS: 80307; 81001

== ENCOUNTER 2019-02-19 17:28 | Emergency (ER) | payer MEDICAID ==
[2019-02-19] MEDS ORDERED: ACETAMINOPHEN 325 MG TABLET PO ONE (18:05)
--- NOTE | 2019-02-19 18:06 | ER Document Report ---
HPI - HPI Patient complains to provider of: Left hand injury Time Seen by Provider: 02/19/19 18:00 Onset: This afternoon Onset/Duration: Sudden Quality of pain: Achy Pain Level: 4 Context: Patient states that she punched a car door today. Patient with left hand tenderness and swelling. Patient is right-hand dominant. Associated Symptoms: Other - Left hand tenderness and swelling Exacerbated by: Movement Relieved by: Denies Similar symptoms previously: No Recently seen / treated by doctor: No - ROS ROS below otherwise negative: Yes Systems Reviewed and Negative: Yes All other systems reviewed and negative - NEURO Neurology: DENIES: Weakness - GASTROINTESTINAL Gastrointestinal: DENIES: Nausea - REPRODUCTIVE Reproductive: REPORTS: : - MUSCULOSKELETAL Musculoskeletal: REPORTS: Extremity pain, Swelling - DERM Skin Color: Normal Skin Problems: None Past Medical History - General Information source: Patient - Social History Smoking Status: Never Smoker Frequency of alcohol use: None Drug Abuse: None Occupation: Property management Family History: Reviewed & Not Pertinent Neurological Medical History: Reports: Hx Migraine, Hx Seizures - pnuemonia 2/3years old, had seizure X1. Denies: Hx Cerebrovascular Accident Renal/ Medical History: Denies: Hx Peritoneal Dialysis GI Medical History: Denies: Hx Hepatitis, Hx Hiatal Hernia, Hx Ulcer Infectious Medical History: Denies: Hx Hepatitis Past Surgical History: Reports: Hx Section - x 1, Hx Oral Surgery - wisdom teeth, Hx Tubal Ligation - Immunizations Hx Diphtheria, Pertussis, Tetanus Vaccination: No Vertical Provider Document - CONSTITUTIONAL Agree With Documented VS: Yes Exam Limitations: No Limitations General Appearance: WD/WN, No Apparent Distress - INFECTION CONTROL TRAVEL OUTSIDE OF THE [place] IN LAST 30 DAYS: No - HEENT HEENT: Atraumatic, Normocephalic - NECK Neck: Normal Inspection - RESPIRATORY Respiratory: No Respiratory Distress - CARDIOVASCULAR Pulses: Normal: Radial - MUSCULOSKELETAL/EXTREMETIES Musculoskeletal/Extremeties: MAEW, FROM, Tender - Left hand tenderness over fifth metacarpal with 2+ edema, no ecchymosis, Edema. negative: Eccymosis - NEURO Level of Consciousness: Awake, Alert, Appropriate Motor/Sensory: No Motor Deficit, No Sensory Deficit - DERM Integumentary: Warm, Dry, No Rash Course - Vital Signs Vital signs: Temp Pulse Resp BP Pulse Ox 98.9 F 89 18 156/97 H 99 02/19/19 17:31 02/19/19 17:31 02/19/19 17:31 02/19/19 17:31 02/19/19 17:31 - Diagnostic Test Radiology reviewed: Pending, Image reviewed Procedures - Immobilization Left Hand Pre-Proc Neuro Vasc Exam: Normal Immobilizer type: Ulnar Performed by: PCT Post-Proc Neuro Vasc Exam: Normal Alignment checked and good: Yes Discharge - Discharge Clinical Impression: Fracture of metacarpal of left hand, closed Qualifiers: Encounter type: initial encounter Metacarpal bone: fifth Metacarpal location: unspecified portion of metacarpal Fracture alignment: nondisplaced Qualified Code(s): S62.307A - Unspecified fracture of fifth metacarpal bone, left hand, initial encounter for closed fracture Condition: Stable Disposition: HOME, SELF-CARE Instructions: Fractured Fifth Metacarpal ([facility]), Acetaminophen, Ice & Elevation ([facility]), Splint Precautions ([facility]) Additional Instructions: Return immediately for any new or worsening symptoms Followup with your primary care provider, call tomorrow to make a followup appointment Follow-up with orthopedics for further evaluation, call tomorrow for an appointment Referrals: MITESH CAPUTO MD [Primary Care Provider] - Follow up as needed [facility] [Provider Group] - Follow up tomorrow
--- NOTE | 2019-02-19 18:55 | RADIOLOGY REPORT (SQ) ---
EXAM DESCRIPTION: HAND LEFT 3 VIEWS COMPLETED DATE/TIME: 02/19/2019 6:43 pm REASON FOR STUDY: Punched car door, L 5th [facility] COMPARISON: None. NUMBER OF VIEWS: Three views left hand. LIMITATIONS: None. FINDINGS: Nondisplaced fracture with minimal angulation along the 5th metacarpal neck. Regional sof t tissue swelling. OTHER: No other significant finding. IMPRESSION: 5th metacarpal fracture. TECHNICAL DOCUMENTATION: JOB ID: [id number] Reading location - IP/workstation name: [email or web address]
[2019-02-19 19:07] VITALS: BP 136/87
== END 2019-02-19 19:11 | disposition home or self-care (01) ==
LOC: ER 17:28
DX: O9A.219 Injury, poisoning and certain other consequences of external causes complicating pregnancy, unspecified trimester (principal); S62.367A Nondisplaced fracture of neck of fifth metacarpal bone, left hand, initial encounter for closed fracture; W22.8XXA Striking against or struck by other objects, initial encounter; Z3A.00 Weeks of gestation of pregnancy not specified
CPT/HCPCS: 99283; 73130; 29125; J3490

== ENCOUNTER 2019-03-11 09:27 | Emergency (ER) | payer MEDICAID ==
[2019-03-11 09:38] VITALS: BP 134/77
[2019-03-11] MEDS ORDERED: LIDOCAINE 5% (700 MG) TRANSDERMAL ADH..PATCH TP ONE (10:02)
[2019-03-11] MEDS ORDERED: ACETAMINOPHEN 325 MG TABLET PO ONE (10:02)
[2019-03-11] MEDS ORDERED: CYCLOBENZAPRINE HCL 10 MG TABLET PO ONE (10:02)
--- NOTE | 2019-03-11 10:04 | ER Document Report ---
HPI - HPI Patient complains to provider of: neck pain Time Seen by Provider: 03/11/19 09:42 Onset: Other - 3 days Onset/Duration: Persistent Quality of pain: Achy Pain Level: 4 Context: Patient presents complaining of neck pain that started to the left lateral side of her neck 3 days ago. Patient states that she has since started to have bilateral neck pain that is going up into the base of her skull. Patient denies any injury. Patient denies any fever. Patient complains of increased pain with movement. Patient is currently 30 weeks and states that Tylenol has not been helping with her symptoms. Associated Symptoms: Headache, Other - Neck pain. denies: Fever, Nausea, Vomiting Exacerbated by: Movement Relieved by: Remaining still Similar symptoms previously: No Recently seen / treated by doctor: No - ROS ROS below otherwise negative: Yes Systems Reviewed and Negative: Yes All other systems reviewed and negative - CONSTITUTIONAL Constitutional: DENIES: Fever, Chills - NEURO Neurology: REPORTS: Headache. DENIES: Weakness, Vision blurred - RESPIRATORY Respiratory: DENIES: Coughing - GASTROINTESTINAL Gastrointestinal: DENIES: Abdominal Pain, Nausea, Patient vomiting - REPRODUCTIVE Reproductive: REPORTS: : - MUSCULOSKELETAL Musculoskeletal: REPORTS: Neck Pain. DENIES: Extremity pain, Back Pain - DERM Skin Color: Normal, [place] Skin Problems: None Past Medical History - General Information source: Patient - Social History Smoking Status: Never Smoker Frequency of alcohol use: None Drug Abuse: None Occupation: Property management Lives with: Family Family History: Reviewed & Not Pertinent Patient has suicidal ideation: No Patient has homicidal ideation: No Pulmonary Medical History: Denies: Hx Asthma Neurological Medical History: Reports: Hx Migraine, Hx Seizures - pnuemonia 2/3years old, had seizure X1 Renal/ Medical History: Denies: Hx Peritoneal Dialysis Infectious Medical History: Denies: Hx Hepatitis Past Surgical History: Reports: Hx Section - x 1, Hx Cholecystectomy, Hx Oral Surgery - wisdom teeth, Hx Tonsillectomy - Immunizations Hx Diphtheria, Pertussis, Tetanus Vaccination: No Vertical Provider Document - CONSTITUTIONAL Agree With Documented VS: Yes Exam Limitations: No Limitations General Appearance: WD/WN, No Apparent Distress Notes: Nontoxic appearance - INFECTION CONTROL TRAVEL OUTSIDE OF THE [place] IN LAST 30 DAYS: No - HEENT HEENT: Atraumatic, Normocephalic. negative: Pharyngeal Exudate, Pharyngeal Erythema, Tympanic Membrane Red, Tympanic Membrane Bulging - NECK Neck: Supple. negative: Lymphadenopathy-Left, Lymphadenopathy-Right Notes: No cervical midline tenderness, patient with tenderness to the bilateral trapezius muscle, patient with point tenderness to insertion point of the trapezius muscle to the occipital area scalp, patient able to flex neck without guarding - RESPIRATORY Respiratory: Breath Sounds Normal, No Respiratory Distress - CARDIOVASCULAR Cardiovascular: Regular Rate, Regular Rhythm - BACK Back: Normal Inspection. negative: CVA Tenderness-Right, CVA Tenderness-Left Notes: No spinal midline tenderness - MUSCULOSKELETAL/EXTREMETIES Musculoskeletal/Extremeties: MILAGROS KELLY - NEURO Level of Consciousness: Awake, Alert, Appropriate Motor/Sensory: No Motor Deficit - DERM Integumentary: Warm, Dry, No Rash Course - Re-evaluation Re-evalutation: 03/11/19 10:[address] Hanna regarding treatment options. Dr. Hanna recommends giving Valium. Discussed options and medication risk profile with patient, patient prefers deferring ganglion medication if possible. Consulted with Dr. Epstein who is on-call for OB who recommends Flexeril. Patient nontoxic in appearance with what appears to be a tension headache and trapezius muscle tenderness and spasm. The patient presents with headache without signs of CLOTHER IN bleed, stroke, infection, or other serious etiology. The patient is neurologically intact. Given the extremely low risk of these diagnoses further testing and evaluation for these possibilities does not appear to be indicated at this time. The patient has been instructed to return if the symptoms worsen or change in any way. - Vital Signs Vital signs: Temp Pulse Resp BP Pulse Ox 98.1 F 79 16 134/77 H 98 03/11/19 09:37 03/11/19 09:37 03/11/19 09:37 03/11/19 09:37 03/11/19 09:37 Discharge - Discharge Clinical Impression: Trapezius muscle spasm, Tension headache Condition: Stable Disposition: HOME, SELF-CARE Instructions: Muscle Relaxers ([facility]), Muscle Strain ([facility]), Tension Headache ([facility]) Additional Instructions: Return immediately for any new or worsening symptoms Followup with your primary care provider, call tomorrow to make a followup appointment Take Tylenol [id number] for pain relief Follow-up with your TEACHER OF THE HEARING IMPAIRED for recheck Prescriptions: Cyclobenzaprine HCl [Flexeril 10 Mg Tablet] 10 mg PO TID #15 tablet Referrals: [facility] [Provider Group] - Follow up tomorrow
== END 2019-03-11 10:15 | disposition home or self-care (01) ==
LOC: ER 09:27
DX: G44.209 Tension-type headache, unspecified, not intractable (principal); M62.838 Other muscle spasm; M54.2 Cervicalgia; Z90.49 Acquired absence of other specified parts of digestive tract
CPT/HCPCS: 99283; J3490 ×3

== ENCOUNTER 2019-05-08 17:52 | Outpatient (CLI) | payer MEDICAID ==
--- NOTE | 2019-05-08 18:54 | Non Stress Test Report ---
Non Stress Test Datetime Report Generated by CPN: 05/08/2019 18:53 DEMOGRAPHIC EGA NST: 38.5 INDICATION Indication for Study: Polyhydramnios; Ordered by Provider VITAL SIGNS Temperature - NST: 98.4 Pulse - NST: 83 RESP - NST: 16 NBPSYS NST: 123 NBPDIA NST: 77 MONITORING Monitor Explained: Monitor Explained; Test Explained; Patient Verbalized Understanding Time on Monitor: 05/08/2019 18:09 Time off Monitor: 05/08/2019 18:50 NST Duration: 41 NST INTERVENTIONS NST Interventions: PO Hydration; Reposition Patient Physician Notified NST: C valle CNM BABY A: [id number] BABY A Movement : Present Contraction Frequency : 0 FHR Baseline : 140 Accelerations : 15X15 Decelerations : None Variability : Moderate 6-25bpm NST Review: Meets Criteria for Reactive NST NST Review and Verified By : Bk Hill RN NST Results: Reactive NST REPORT Report Trigger: Send Report
--- NOTE | 2019-05-08 20:30 | RADIOLOGY REPORT (SQ) ---
EXAM DESCRIPTION: RadLex: US LIMITED CLINICAL HISTORY: 34 years Female; JONEL TECHNIQUE: Transabdominal limited obstetrical ultrasound was performed. COMPARISON: None. FINDINGS: Number of fetuses: Single position: Vertex measurements performed HR: 153 BPM Anatomy: Not evaluated Amniotic fluid: JONEL 24.6 cm, clear Cervix:Could not be measured Placenta: Fundal IMPRESSION: 1. Single viable IUP. 2. JONEL 24.6 cm
--- NOTE | 2019-05-08 22:23 | Non Stress Test Report ---
Non Stress Test Datetime Report Generated by CPN: 05/08/2019 22:22 DEMOGRAPHIC Test Number: 1 EGA NST: 38.5 INDICATION Indication for Study: Ordered by Provider MONITORING Monitor Explained: Monitor Explained; Test Explained; Patient Verbalized Understanding Time on Monitor: 05/08/2019 20:53 Time off Monitor: 05/08/2019 21:13 NST Duration: 20 NST INTERVENTIONS NST Interventions: PO Hydration Physician Notified NST: Dr. Burris BABY A Movement : Present Contraction Frequency : 0 FHR Baseline : 140 Accelerations : 15X15 Decelerations : None Variability : Moderate 6-25bpm NST Review: Meets Criteria for Reactive NST NST Review and Verified By : Mili Hamilton RN NST Results: Reactive NST REPORT Report Trigger: Send Report
== END 2019-05-08 21:20 | disposition home or self-care (01) ==
LOC: LC 17:52
PROVIDERS: ATTEND Obstetrics & Gynecology
PROC: 4A1HXCZ Monitoring of Products of Conception, Cardiac Rate, External Approach (ICD-10-PCS; principal; 2019-05-08)
DX: O40.3XX0 Polyhydramnios, third trimester, not applicable or unspecified (principal); Z3A.38 38 weeks gestation of pregnancy
CPT/HCPCS: 59025; 76815

== ENCOUNTER 2019-05-10 20:02 | Emergency (ER) | payer MEDICAID ==
[2019-05-10] MEDS ORDERED: ACETAMINOPHEN 325 MG TABLET PO ONE (21:41)
--- NOTE | 2019-05-10 21:43 | ER Document Report ---
HPI - HPI Time Seen by Provider: 05/10/19 21:30 Pain Level: Denies Context: Patient is a 34-year-old female who is 39 weeks who presents the emergency department with a cough and a sore throat. She is stating that the coughing is making her chest hurt. She has had her symptoms for the past 2 days. She was seen by her OB doctor on Wednesday and they said that there was not much they can do for her. - CONSTITUTIONAL Constitutional: DENIES: Fever, Chills - EENT EENT: REPORTS: Sore Throat, Nasal Drainage-Clear, Congestion. DENIES: Nasal Drainage-Purulent, Eye problems - NEURO Neurology: DENIES: Headache, Weakness, Vision blurred - CARDIOVASCULAR Cardiovascular: DENIES: Chest pain - RESPIRATORY Respiratory: REPORTS: Coughing. DENIES: Trouble Breathing - GASTROINTESTINAL Gastrointestinal: DENIES: Abdominal Pain, Patient vomiting, Diarrhea - REPRODUCTIVE Reproductive: REPORTS: : - MUSCULOSKELETAL Musculoskeletal: DENIES: Extremity pain - DERM Skin Color: Normal Skin Problems: None Past Medical History - Social History Smoking Status: Never Smoker Family History: Reviewed & Not Pertinent - Past Medical History Cardiac Medical History: Denies: Hx Heart Attack, Hx Hypertension Pulmonary Medical History: Denies: Hx Asthma Neurological Medical History: Reports: Hx Migraine, Hx Seizures - pnuemonia 2/3years old, had seizure X1. Denies: Hx Cerebrovascular Accident Renal/ Medical History: Denies: Hx Peritoneal Dialysis GI Medical History: Denies: Hx Hepatitis, Hx Hiatal Hernia, Hx Ulcer Infectious Medical History: Denies: Hx Hepatitis Past Surgical History: Reports: Hx Section - x 1, Hx Cholecystectomy, Hx Oral Surgery - wisdom teeth, Hx Tonsillectomy, Hx Tubal Ligation. Denies: Hx Hysterectomy, Hx Mastectomy, Hx Open Heart Surgery, Hx Pacemaker - Immunizations Hx Diphtheria, Pertussis, Tetanus Vaccination: No Vertical Provider Document - CONSTITUTIONAL Agree With Documented VS: Yes Exam Limitations: No Limitations General Appearance: No Apparent Distress - INFECTION CONTROL TRAVEL OUTSIDE OF THE [place] IN LAST 30 DAYS: No - HEENT HEENT: Atraumatic, Normocephalic, PERRLA - NECK Neck: Normal Inspection - RESPIRATORY Respiratory: Breath Sounds Normal, No Respiratory Distress - CARDIOVASCULAR Cardiovascular: Regular Rate, Regular Rhythm Pulses: Normal: Radial - GI/ABDOMEN Notes: Noticeably 39 weeks . - MUSCULOSKELETAL/EXTREMETIES Musculoskeletal/Extremeties: FROM - NEURO Level of Consciousness: Awake, Alert, Appropriate Motor/Sensory: No Motor Deficit, No Sensory Deficit, No Pronator Drift - DERM Integumentary: Warm, Dry, No Rash Course - Re-evaluation Re-evalutation: Patient's rapid strep test is negative at this time. I will be sent for culture. I discussed this case with Dr. May. I asked her what her sugge stions were for a cough and sore throat in somebody who is 39 weeks . She states that at this time warm tea and honey is the best thing for her. I suggested to the patient that she can take [id number]-[id number] Unisom since she is having a hard time sleeping. She is in agreement with this plan. She will follow-up with OB if she continues to have worsening symptoms. Follow-up precautions were given. Verbal discharge instructions were given to the patient. They verbalized understanding. They are stable for discharge. - Vital Signs Vital signs: Temp Pulse Resp BP Pulse Ox 99.1 F 103 H 24 H 135/86 H 98 05/10/19 20:09 05/10/19 20:09 05/10/19 20:09 05/10/19 20:09 05/10/19 20:09 Discharge - Discharge Clinical Impression: Cough, Sore throat Condition: Stable Disposition: HOME, SELF-CARE Additional Instructions: You were seen today in the emergency department for a cough and a sore throat. Your rapid strep was negative. Your urine did not show any infection. Your urine showed that you are dehydrated. You can take Tylenol 650 mg every 6 hours for your pain. Make sure you stay well-hydrated and drink plenty of fluids. You can take warm tea with honey to help soothe your throat. You may take gpvk-hzi-rveolif Unisom to help you sleep. Follow-up with FELLING MACHINE OPERATOR or your primary care provider if you have worsening symptoms. Referrals: ROXANN SHIRLEY MD [Primary Care Provider] - Follow up as needed
[2019-05-10 22:00] LABS: APPEARANCE,URINE CLOUDY; BILIRUBIN,URINE SMALL (NEGATIVE); CALCIUM OXALATE CRYSTALS,URINE FEW /HPF; GLUCOSE, URINE NEGATIVE (NEGATIVE); KETONES,URINE TRACE mg/dL (NEGATIVE); LEUKOCYTE ESTERASE,URINE NEGATIVE (NEGATIVE); NITRITE,URINE NEGATIVE (NEGATIVE); PROTEIN,URINE 100 mg/dL (NEGATIVE); URINE SPECIFIC GRAVITY 1.033
[2019-05-10 22:02] LABS: COLOR,URINE YELLOW
[2019-05-10 22:55] VITALS: BP 130/85
== END 2019-05-10 22:52 | disposition home or self-care (01) ==
LOC: ER 20:02
DX: O26.893 Other specified pregnancy related conditions, third trimester (principal); R05 Cough; R07.9 Chest pain, unspecified; R09.89 Other specified symptoms and signs involving the circulatory and respiratory systems; O99.513 Diseases of the respiratory system complicating pregnancy, third trimester; J02.9 Acute pharyngitis, unspecified; Z3A.39 39 weeks gestation of pregnancy
CPT/HCPCS: 99283; 87070; 87880; 81001; J3490

== ENCOUNTER 2019-05-23 10:06 | Inpatient (IN) | payer MEDICAID ==
--- NOTE | 2019-05-23 11:42 | Non Stress Test Report ---
Non Stress Test Datetime Report Generated by CPN: 05/23/2019 11:42 DEMOGRAPHIC EGA NST: 40.6 INDICATION Indication for Study: Ordered by Provider MONITORING Monitor Explained: Monitor Explained; Test Explained; Patient Verbalized Understanding Time on Monitor: 05/23/2019 11:13 Time off Monitor: 05/23/2019 11:39 NST Duration: 26 NST INTERVENTIONS NST Interventions: None Physician Notified NST: Dr. Burris BABY A: [id number] BABY A Movement : Present Contraction Frequency : irregular FHR Baseline : 125 Accelerations : 15X15 Decelerations : None Variability : Moderate 6-25bpm NST Review: Meets Criteria for Reactive NST NST Review and Verified By : TMartin,RN NST Results: Reactive NST REPORT Report Trigger: Send Report
[2019-05-23 12:01] LABS: APPEARANCE,URINE SLIGHTLY-CLOUDY; BILIRUBIN,URINE NEGATIVE (NEGATIVE); COLOR,URINE YELLOW; GLUCOSE, URINE NEGATIVE (NEGATIVE); KETONES,URINE NEGATIVE (NEGATIVE); LEUKOCYTE ESTERASE,URINE NEGATIVE (NEGATIVE); NITRITE,URINE NEGATIVE (NEGATIVE); PROTEIN,URINE NEGATIVE (NEGATIVE); URINE SPECIFIC GRAVITY 1.019
[2019-05-23 12:20] LABS: URINE AMPHETAMINES SCREEN NEGATIVE; URINE BARBITURATES SCREEN NEGATIVE; URINE BENZODIAZEPINES SCREEN NEGATIVE; URINE COCAINE SCREEN NEGATIVE; URINE MARIJUANA (THC) SCREEN NEGATIVE; URINE METHADONE SCREEN NEGATIVE; URINE PHENCYCLIDINE SCREEN NEGATIVE
[2019-05-23] MEDS ORDERED: PENICILLIN G-K 5 MILLION UNIT VIAL ONE (13:28)
--- NOTE | 2019-05-23 13:29 | Admission Physical ---
Datetime Report Generated by CPN: 05/23/2019 13:29 CURRENT ADMISSION Hx Assessment: The History has been Reviewed and is Current Chief Complaint: Uterine Contractions Indication for Induction: Not Applicable Admit Impression : Term, Intrauterine Admit Plan: Admit to Unit; Initiate Protocol ALLERGIES Medication Allergies: No Medication Allergies: No Known Allergies (05/08/2019) OBSTETRICAL HISTORY EDC: 05/17/2019 00:00 : 2 Para: 1 Term: 0 : 1 SAB: 0 IAB: 0 Ectopic: 0 Livin Cesareans: 1 VBACs: 0 Multiple Births: 0 Depression/PP Depression: Yes Obstetrical History Comments: G1 - C/S at 36 weeks for distress, PROM G2 - current, Shingles at 12 weeks, HSV MEDICAL HISTORY Hosp/Surgery: Yes Abnormal Pap Smear: Yes Psychiatric Disorders: Yes Medical History Comments: Obesity, Depression, ADHD, Tourettes, HSV, LGSIL pap, Shingles, Migraines, Tonsillectomy, Adenoidectomy INFECTIOUS HISTORY Genital Herpes: Yes HPV: Yes Infectious History Comments: HSV PHYSICAL EXAM General: Normal HEENT: Normal Neurologic: Normal Thyroid: Deferred Heart: Normal Lungs: Normal Breast: Deferred Back: Normal Abdomen: Normal Genitourinary Exam: Normal Extremities: Normal DTRs: Normal Pelvic Type: Adequate Physical Exam Comments: pelvis proven 7-2 C/S 2010 HV, last outbreak 2nd trimester, on valtrex since 35 weeks EFW = 7-14 LGSIL, colpo 10-29 Obesity Hx Migraines Hx Shingles @ 12 weeks Hx Depression, ADHD, Tourettes + GBS in urine Poly @ 37 weeks, resolved Vital Signs: Reviewed VAGINAL EXAM Dilatation: 5 Effacement: 100 Station: 0 MEMBRANES Membranes: Intact FETUS A EGA: 40.6 Decelerations: None Admit Comment: Admit to LD in active labor, TOLC, Dr. Burris aware and will monitor closely, Cat 1 strip, will notify Anesthesia, no active lesions, pt agrees to plan INFORMED CONSENT Assignment: Sourav Burris MD Signature: with User ID: [email or web address] : with User ID: [email or web address]
[2019-05-23] MEDS ORDERED: OXYTOCIN/NORMAL SALINE 0 UNIT/0 ML RTUINJ ONE (13:34)
[2019-05-23] MEDS ORDERED: OXYTOCIN 10 UNIT/ML VIAL ONE ×2 (13:34→16:46)
[2019-05-23] MEDS ORDERED: LIDOCAINE 1% INJ-PF (10 MG/ML) 30 ML SDV ONE (13:34)
[2019-05-23] MEDS ORDERED: MISOPROSTOL 0.2 MG TABLET ONE (13:34)
[2019-05-23 13:54] LABS: ABSOLUTE LYMPHOCYTES (AUTO) 1.6 10^3/uL (0.5-4.7); ABSOLUTE MONOCYTES (AUTO) 0.5 10^3/uL (0.1-1.4); ABSOLUTE NEUT (AUTO) 10.8 10^3/uL (1.7-8.2); BASOPHILS % (AUTO) 0.3 % (0-2); EOSINOPHILS % (AUTO) 0.1 % (0-6); HEMOGLOBIN 11.7 g/dL (12.0-15.5); LYMPHOCYTES % (AUTO) 12.1 % (13-45); MEAN CORPUSCULAR HEMOGLOBIN 28.7 pg (27.0-33.4); MEAN CORPUSCULAR HGB CONC 33.5 g/dL (32.0-36.0); MEAN CORPUSCULAR VOLUME 86 fl (80-97); PLATELET COUNT 244 10^3/uL (150-450); RED BLOOD COUNT 4.08 10^6/uL (3.72-5.28); RED CELL DISTRIBUTION WIDTH 15.1 % (11.5-14.0); SEGMENTED NEUTROPHILS % (AUTO) 83.5 % (42-78); TOTAL CELLS COUNTED % (AUTO) 100 %
[2019-05-23] MEDS ORDERED: NALBUPHINE HCL INJ 10 MG/1 ML AMPULE ONE (14:02)
[2019-05-23] MEDS ORDERED: PHENYLEPHRINE HCL INJ/PF 10 MG/1 ML SDV ONE (14:11)
[2019-05-23] MEDS ORDERED: FENTANYL CITRATE INJ/PF 100 MCG/2 ML AMPUL ONE (14:12)
[2019-05-23] MEDS ORDERED: FENTANYL/BUPIVACAINE/NS/PF 300 MCG/150 ML RTUINJ EPI ONE (14:12)
[2019-05-23] MEDS ORDERED: EPHEDRINE SULFATE INJ 50 MG/1 ML AMPULE ONE (14:12)
[2019-05-23] MEDS ORDERED: BUPIVACAINE HCL 0.25 % INJ/PF (2.5 MG/1 ML) 30 ML VIAL ONE (14:13)
[2019-05-23] MEDS ORDERED: DIPHENHYDRAMINE HCL 50 MG/ML VIAL IV ONE (15:18)
[2019-05-23] MEDS ORDERED: DIPHENHYDRAMINE HCL 50 MG/ML VIAL ONE (15:19)
[2019-05-23] MEDS ORDERED: CITRIC ACID/SODIUM CITRATE ORAL SOLN 15 ML UDCUP ONE (16:25)
[2019-05-23] MEDS ORDERED: CEFAZOLIN 1 GM/D5W RTU 2 GM/100 ML RTUPB IV ONE (16:25)
[2019-05-23] MEDS ORDERED: RINGERS SOLUTION,LACTATED 1,000 ML IV PRN (16:34)
[2019-05-23] MEDS ORDERED: ACETAMINOPHEN 1,000 MG/100 ML RTUPB IV PRN (16:34)
[2019-05-23] MEDS ORDERED: OXYCODONE-ACETAMINOPHEN 5-325 MG TABLET PO PRN (16:34)
[2019-05-23] MEDS ORDERED: HYDROMORPHONE HCL INJ/PF 2 MG/ML AMPULE IV PRN (16:34)
[2019-05-23] MEDS ORDERED: PROMETHAZINE HCL INJ 25 MG/1 ML VIAL IV PRN (16:34)
[2019-05-23] MEDS ORDERED: ACETAMINOPHEN 325 MG TABLET PO PRN (16:34)
[2019-05-23] MEDS ORDERED: OXYTOCIN/NORMAL SALINE 20 UNIT/1,000 ML RTUINJ IV PRN (16:34)
[2019-05-23] MEDS ORDERED: SIMETHICONE 80 MG TAB.CHEW PO PRN (16:34)
[2019-05-23] MEDS ORDERED: MEASLES,MUMPS&RUBELLA VACC/PF 0.5 ML VIAL SUBCUT PRN (16:34)
[2019-05-23] MEDS ORDERED: DIPH/PERTUSS(ACELL)/TETANUS VAC/PF 0.5 ML SYR (>=10YO) IM PRN (16:34)
[2019-05-23] MEDS ORDERED: LIDOCAINE 2% INJ-PF (20 MG/ML) 10 ML AMPUL ONE (16:45)
[2019-05-23] MEDS ORDERED: CHLOROPROCAINE HCL INJ/PF 3% (30 MG/1 ML) 20 ML VIAL ONE (16:45)
[2019-05-23] MEDS ORDERED: ONDANSETRON HCL INJ/PF 4 MG/2 ML SDV ONE (16:45)
[2019-05-23] MEDS ORDERED: MIDAZOLAM 2 MG/2 ML INJ ONE (16:46)
--- NOTE | 2019-05-23 17:56 | Operative Report ---
Operative Report DATE OF SURGERY: 05/23/19 PREOPERATIVE DIAGNOSIS: Arrest of dilatation with a large amount of cervical sw elling POSTOPERATIVE DIAGNOSIS: Same, with the addition of pelvic adhesions OPERATION: Repeat via low transverse uterine incision SURGEON: ROXANN SHIRLEY ANESTHESIA: Epidural TISSUE REMOVED OR ALTERED: Placenta COMPLICATIONS: None ESTIMATED BLOOD LOSS: 400 cc INTRAOPERATIVE FINDINGS: Viable baby delivered in a breech fashion. The baby was vertex but flipped when I placed my hand in the uterine incision. PROCEDURE: Patient was taken to the OR and placed in supine position after her spinal anesthesia. She is prepared and draped in sterile fashion. Hylton was placed for drainage of the bladder. Low transverse incision was made and carried down the level of the fascia. The fascial incision was made with knife and extended bilaterally with curved Erazo scissors. The fascia was off the rectus muscles using sharp and blunt dissection. The rectus muscles are in the midline. The peritoneum was entered without incident. Bladder blade was placed in uterine segment was identified. There were dense adhesions in the low uterine segment to the anterior fascia. A low transverse incision was made creating a bladder flap. Bladder blade was placed low transverse uterine incision was made with the knife and extended with fingertips. The baby was delivered with some fundal pressure. The baby is was initially had down with the head wedged against the cervix but as I brought the head up out of the pelvis the baby flipped breech and then I delivered the baby as a footling breech. Mouth and nose were suctioned free. The cord is doubly clamped and cut. Baby is passed off to the mix chemist in attendance. The placenta was manually extracted with trailing membranes. The uterus was externalized wrapped in a moist lap sponge. Uterine contents wiped free. Uterus was closed with a running locking layer of 0 chromic suture using the second layer to imbricate the first completing a double layer closure of the uterus. The pelvis was irrigated and suctioned free of fluid the uterus was replaced in the abdomen. The angles of the incision and pelvic gutters were checked for bleeding and hemostasis was good. There was no evidence of injury to the bladder. There was not much abdominal wall peritoneum to close. The available peritoneum was brought together in the midline. Fascia was closed with a running 0 Vicryl in 2 segments. Calvin's layer was brought together with 0 plain gut stitch and the skin was closed with running subcuticular 4-0 undyed Vicryl stitch. The wound was dressed mother and baby did well.
[2019-05-23] MEDS ORDERED: ACETAMINOPHEN 1,000 MG/100 ML RTUPB IV ONE (18:02)
[2019-05-23] MEDS ORDERED: HYDROMORPHONE HCL INJ/PF 2 MG/ML AMPULE ONE (18:12)
--- NOTE | 2019-05-23 19:16 | Delivery Summary ---
Del Sum A-C Datetime Report Generated by CPN: 05/23/2019 19:16 DELIVERY PERSONNEL DELIVERY PERSONNEL: [id number] Delivery Doctor:: Sourav Burris MD Anesthesiologist:: Jacki Griffith MD ELECTRIC ACCOUNTING MACHINE OPERATOR:: Romeo Davies CRNA Data Migration Consultant:: Veronica Rahman RN Neonatal Nurse Practitioner:: FELICIA Houser Nursery Nurse:: Elisa Ahuja RN Government Relations Analyst/ACQUISITION PROFESSIONAL: Vita Liu CST Government Relations Analyst/ACQUISITION PROFESSIONAL: Florence Velasquez, ST MATERNAL INFORMATION Delivery Anesthesia: Epidural Medications After Delivery: Pitocin Bolus-Please Comment Maternal Complications: Other LABOR SUMMARY EDC: 05/17/2019 00:00 No. Babies in Womb: 1 LABOR INFORMATION Reason for Induction: Not Applicable Group B Beta Strep: positive MEMBRANES Membranes Rupture Method: Spontaneous Rupture of Membranes: 05/23/2019 14:25 Length of Rupture (hr): 2.73 Amniotic Fluid Color: Particulate Meconium Amniotic Fluid Amount: Copious STAGES OF LABOR Stage 3 hr: 0 Stage 3 min: 1 BABY A INFORMATION Infant Delivery Date/Time: 05/23/2019 17:09 Method of Delivery: Born in Route : No : Failed Forceps: N/A Vacuum Extraction: Successful Shoulder Dystocia : No PRESENTATION/POSITION BABY A Presentation: Cephalic Cephalic Presentation: Vertex Breech Presentation: N/A PLACENTA INFORMATION BABY A Placenta Delivery Time : 05/23/2019 17:10 Placenta Method of Delivery: Manual Removal Placenta Status: Delivered SCORES BABY A Heart Rate 1 min: >100 bpm Resp Effort 1 min: Good Cry Reflex Irritability 1 min: Cough or Sneeze or Pulls Away Muscle Tone 1 min: Active Motion Color 1 min: Blue/Pale Resuscitation Effort 1 min: Tactile Stimulation SCORE 1 MIN: 8 Heart Rate 5 min: >100 bpm Resp Effort 5 min: Good Cry Reflex Irritability 5 min: Cough or Sneeze or Pulls Away Muscle Tone 5 min: Active Motion Color 5 min: Body [place], Extremities Blue SCORE 5 MIN: 9 INFORMATION BABY A Gestational Age at Delivery: 40.6 Gestational Status: Full Term- 39- 40.6 Weeks Infant Outcome : Liveborn Condition : Stable Infant Sex: Male IDENTIFICATION BABY A Infant Verification Date/Time: 05/23/2019 17:12 ID Band Number: [id number] Mother's Name Verified: Yes RN Verifying : Nicole Rahman RN, J. Bahena RN WEIGHT/LENGTH BABY A Infant Birthweight (gm): 3505 Weight (lb): 7 Infant Weight (oz): 12 Length (in): 20.50 Infant Length (cm): 52.07 CORD INFORMATION BABY A No. Cord Vessels: 3 Nuchal Cord : N/A Cord Blood Taken: Yes-For Eval (Mom's Blood Type - or O+) Infant Suction: None; Mouth ASSESSMENT BABY A Skin to Skin: Yes
[2019-05-23] MEDS: OXYCODONE-ACETAMINOPHEN 5-325 MG TABLET PO PRN (21:36)
[2019-05-23] MEDS: KETOROLAC TROMETHAMINE INJ/PF 30 MG/1 ML SDV IV SCH (21:37)
[2019-05-23] MEDS: DOCUSATE SODIUM 100 MG CAPSULE PO SCH (22:02)
[2019-05-23] MEDS: IBUPROFEN 800 MG TABLET PO SCH (22:02)
[2019-05-24] MEDS: IBUPROFEN 800 MG TABLET PO SCH ×4 (01:54→19:51)
[2019-05-24] MEDS: OXYCODONE-ACETAMINOPHEN 5-325 MG TABLET PO PRN ×4 (01:57→22:28)
[2019-05-24] MEDS: KETOROLAC TROMETHAMINE INJ/PF 30 MG/1 ML SDV IV SCH ×2 (05:05→13:07)
[2019-05-24 07:30] LABS: HEMATOCRIT 27.3 % (36.0-47.0); MEAN CORPUSCULAR HEMOGLOBIN 29.5 pg (27.0-33.4); MEAN CORPUSCULAR HGB CONC 34.2 g/dL (32.0-36.0); MEAN CORPUSCULAR VOLUME 86 fl (80-97); PLATELET COUNT 217 10^3/uL (150-450); RED BLOOD COUNT 3.16 10^6/uL (3.72-5.28); RED CELL DISTRIBUTION WIDTH 15.3 % (11.5-14.0); WHITE BLOOD COUNT 14.9 10^3/uL (4.0-10.5)
[2019-05-24 07:33] LABS: HEMOGLOBIN 9.3 g/dL (12.0-15.5)
[2019-05-24] MEDS ORDERED: NORMAL SALINE 500 ML IV ONE (08:30)
[2019-05-24] MEDS: PRENATAL VITAMIN W DHA CAPSULE PO SCH (10:23)
[2019-05-24] MEDS: DOCUSATE SODIUM 100 MG CAPSULE PO SCH ×2 (10:23→17:55)
--- NOTE | 2019-05-24 16:45 | PDOC PROGRESS REPORT ---
Subjective-OB Progress Note for:: 05/24/19 Subjective: Pt doing well, resting bonding with baby. She reports light bleeding, regular diet and voiding without difficulty. Physical Exam (OB) Vital Signs: Temp Pulse Resp BP Pulse Ox 98.3 F 89 14 128/83 H 97 05/24/19 12:39 05/24/19 12:39 05/24/19 12:39 05/24/19 12:39 05/24/19 12:39 Intake & Output 05/23/19 05/24/19 05/25/19 06:59 06:59 06:59 Output Total 600 1250 Balance -600 -1250 Weight 111.584 kg - PIH/Pre-Eclampsia DTR's: 2 + Clonus: Negative Headache: Absent Epigastric Pain: No Visual Changes: No - Dressing Removed: No - Optsite clean, dry and intact Incision: Dressing Closure Type: Surgical Glue - Lochia Lochia Amount: Small 10-25 ml Lochia Color: Rubra/Red - Abdomen Description: Soft, Round Hernia Present: No Fundal Description: Firm, Midline Fundal Height: u/u - u/2 Objective-Diagnostic Laboratory: 05/24/19 06:45 05/24/19 06:45 WBC 14.9 H RBC 3.16 L Hgb 9.3 L D Hct 27.3 L MCV 86 MCH 29.5 MCHC 34.2 RDW 15.3 H Plt Count 217 Assessment and Plan(PN) - Assessment and Plan (1) delivery delivered Is this a current diagnosis for this admission?: Yes - Time Spent with Patient Time with patient: Less than 15 minutes Medications reviewed and adjusted accordingly: Yes - Disposition Anticipated Discharge: Home Within: within 24 hours
[2019-05-24] MEDS ORDERED: GUAIFENESIN SYRP 200 MG/10 ML UDC PO PRN (17:28)
[2019-05-24] MEDS: GUAIFENESIN/D-METHORPHAN (200-20 MG) SYRUP 10 ML PO PRN (22:28)
[2019-05-25] MEDS: IBUPROFEN 800 MG TABLET PO SCH ×4 (00:43→17:24)
[2019-05-25] MEDS ORDERED: VALACYCLOVIR HCL 500 MG TABLET ONE (04:19)
[2019-05-25] MEDS: VALACYCLOVIR HCL 500 MG TABLET PO SCH ×2 (06:42→17:25)
--- NOTE | 2019-05-25 09:05 | PDOC PROGRESS REPORT ---
Subjective-OB Progress Note for:: 05/25/19 Subjective: Ready for discharge. Physical Exam (OB) Vital Signs: Temp Pulse Resp BP Pulse Ox 98.8 F 78 16 131/87 H 100 05/25/19 04:15 05/25/19 04:15 05/25/19 04:15 05/25/19 04:15 05/25/19 04:15 Intake & Output 05/24/19 05/25/19 05/26/19 06:59 06:59 06:59 Output Total 600 1250 Balance -600 -1250 Weight 111.584 kg - PIH/Pre-Eclampsia DTR's: 2 + Clonus: Negative Headache: Absent Epigastric Pain: No Visual Changes: No - Dressing Removed: No Incision: Well Approximated Closure Type: opsite - Lochia Lochia Amount: Small 10-25 ml Lochia Color: Rubra/Red - Abdomen Description: Tender, Soft, Round Hernia Present: No Bowel Sounds: Normoactive Flatus Presence: Present Stool: No Fundal Description: Firm, Midline Fundal Height: u/u - u/2 Objective-Diagnostic Laboratory: 05/24/19 06:45 Assessment and Plan(PN) - Time Spent with Patient Medications reviewed and adjusted accordingly: Yes - Disposition Anticipated Discharge: Home
--- NOTE | 2019-05-25 09:14 | PDOC DISCHARGE SUMMARY ---
Final Diagnosis Discharge Date: 05/25/19 - Final Diagnosis (1) Anemia due to acute blood loss Is this a current diagnosis for this admission?: Yes (2) Anemia, iron deficiency Is this a current diagnosis for this admission?: Yes (3) delivery delivered Is this a current diagnosis for this admission?: Yes (4) Failed trial of labor following previous , delivered Is this a current diagnosis for this admission?: Yes (5) History depression and anxiety Is this a current diagnosis for this admission?: Yes (6) History of shingles Is this a current diagnosis for this admission?: Yes Discharge Data - Discharge Medication Prescriptions: Oxycodone HCl/Acetaminophen [Percocet 5-325 mg Tablet] 1 tab PO Q4HP PRN #20 tablet PRN Reason: Docusate Sodium [Colace 100 mg Capsule] 100 mg PO BID #30 capsule Ibuprofen [Motrin 800 mg Tablet] 800 mg PO Q6 #30 tablet Valacyclovir HCl [Valtrex 500 mg Tablet] 1,000 mg PO Q12A #30 tablet Home Medications: Prenat 115/Iron Fum/Folic/Dss [ 19 Tablet] 1 tab PO DAILY 01/29/19 Albuterol Sulfate [Proair HFA Inhalation Aerosol 8.5 gm MDI] 2 puff IH Q4 PRN 05/24/19 Docusate Sodium [Colace 100 mg Capsule] 100 mg PO BID #30 capsule 05/25/19 Ibuprofen [Motrin 800 mg Tablet] 800 mg PO Q6 #30 tablet 05/25/19 Oxycodone HCl/Acetaminophen [Percocet 5-325 mg Tablet] 1 tab PO Q4HP PRN #20 tablet 05/25/19 Valacyclovir HCl [Valtrex 500 mg Tablet] 1,000 mg PO Q12A #30 tablet 05/25/19 Gestational Age: 40.6 wks Reason(s) for Admission: Induction of Labor Procedures: Ultrasound Intrapartum Procedure(s): : Low Cervical, Transverse - [place] Data Baby 1 Male at 1 minute: 8 at 5 minutes: 9 Weight: 3.515 kg Home with Mother: Yes Complications: No - Diagnosis Test Laboratory: Temp Pulse Resp BP Pulse Ox 98.8 F 78 16 131/87 H 100 05/25/19 04:15 05/25/19 04:15 05/25/19 04:15 05/25/19 04:15 05/25/19 04:15 05/23/19 05/23/19 05/24/19 10:27 13:22 06:45 RBC 4.08 3.16 L Hgb 11.7 L 9.3 L D Hct 35.0 L 27.3 L Urine Opiates Screen NEGATIVE - Discharge information/Instructions Discharge Activity: Activity As Tolerated, Balance Activity w/Rest, No Lifting Over 10 Pounds, No Lifting/Push/Pulling, Non-Ambulatory Child, Pelvic Rest, Slowly Increase Activity, No tub bath Discharge Diet: Regular Disposition: HOME, SELF-CARE Follow up with: [facility] in: 1, Weeks
[2019-05-25] MEDS: PRENATAL VITAMIN W DHA CAPSULE PO SCH (09:32)
[2019-05-25] MEDS: DOCUSATE SODIUM 100 MG CAPSULE PO SCH ×2 (09:32→17:25)
[2019-05-25 10:47] VITALS: BP 144/83
[2019-05-25] MEDS: GUAIFENESIN/D-METHORPHAN (200-20 MG) SYRUP 10 ML PO PRN ×2 (11:35→17:25)
[2019-05-25] MEDS: OXYCODONE-ACETAMINOPHEN 5-325 MG TABLET PO PRN (18:40)
[2019-05-27 16:24] LABS: HSV-I IGG AB <0.91 index (0.00-0.90)
== END 2019-05-25 19:57 | disposition home or self-care (01) | DRG 787 ==
LOC: LC 10:06 → LR 13:16 → 2N 19:35
PROVIDERS: ADMIT Obstetrics & Gynecology; ATTEND Obstetrics & Gynecology
PROC: 10D00Z1 Extraction of Products of Conception, Low, Open Approach (ICD-10-PCS; principal; 2019-05-23)
DX: O34.211 Maternal care for low transverse scar from previous cesarean delivery (principal); O98.32 Other infections with a predominantly sexual mode of transmission complicating childbirth; D62 Acute posthemorrhagic anemia; O62.1 Secondary uterine inertia; O77.0 Labor and delivery complicated by meconium in amniotic fluid; A60.00 Herpesviral infection of urogenital system, unspecified; O99.214 Obesity complicating childbirth; E66.9 Obesity, unspecified; O99.344 Other mental disorders complicating childbirth; F32.9 Major depressive disorder, single episode, unspecified; F95.2 Tourette's disorder; O99.824 Streptococcus B carrier state complicating childbirth; Z79.899 Other long term (current) drug therapy; Z37.0 Single live birth; Z3A.40 40 weeks gestation of pregnancy; O99.89 Other specified diseases and conditions complicating pregnancy, childbirth and the puerperium; O99.02 Anemia complicating childbirth; N99.4 Postprocedural pelvic peritoneal adhesions; Z86.19 Personal history of other infectious and parasitic diseases
CPT/HCPCS: 1961; 36415; 80307; 81005; 85025; 85027; 86592; 86695; 86850; 86900; 86901; 94799; J0131; J0690; J1170; J1200; J1885; J2250; J2300; J2370; J2400; J2405; J2540; J2590; J3010; J3490; J7040

== ENCOUNTER 2019-08-24 19:25 | Emergency (ER) | payer MEDICAID ==
[2019-08-24] MEDS ORDERED: DIPHENHYDRAMINE HCL 50 MG/ML VIAL IV ONE (21:25)
[2019-08-24] MEDS ORDERED: NORMAL SALINE 1000 ML 1,000 ML IV ONE (21:25)
[2019-08-24] MEDS ORDERED: KETOROLAC TROMETHAMINE INJ/PF 30 MG/1 ML SDV IV ONE (21:25)
[2019-08-24] MEDS ORDERED: METOCLOPRAMIDE HCL INJ/PF 10 MG/2 ML SDV IV ONE (21:25)
--- NOTE | 2019-08-24 21:27 | ER Document Report ---
ED Medical Screen (RME) - General Chief Complaint: Headache, Worst Ever Stated Complaint: HEADAHCE Time Seen by Provider: 08/24/19 21:22 Primary Care Provider: ROXANN SHIRLEY MD [Primary Care Provider] - Follow up as needed Notes: Patient is a 34-year-old female with a history of migraines who presents to the emergency department with a chief complaint of headache. Patient reports her headache started around 3 AM this morning. Patient reports over the past 24 hours she is attempted to take Maxalt, Excedrin, Aleve and ibuprofen. Patient reports her last dose of these medications were around 3 AM. Patient reports her headache is located in the front as well as the posterior aspect of her head. Patient reports this feels like a typical migraine. Patient reports it feels like a constant stabbing to the front of her head. Patient reports nausea and light sensitivity. Patient denies visual changes. Patient reports that her teeth hurt as well. Patient denies vomiting. TRAVEL OUTSIDE OF THE [place] IN LAST 30 DAYS: No - Related Data Allergies/Adverse Reactions: No Known Allergies Allergy (Verified 05/08/19 18:06) Past Medical History - Past Medical History Cardiac Medical History: Denies: Hx Heart Attack, Hx Hypertension Pulmonary Medical History: Denies: Hx Asthma Neurological Medical History: Reports: Hx Migraine, Hx Seizures - pnuemonia 2/3years old, had seizure X1. Denies: Hx Cerebrovascular Accident Renal/ Medical History: Denies: Hx Peritoneal Dialysis GI Medical History: Denies: Hx Hepatitis, Hx Hiatal Hernia, Hx Ulcer Infectious Medical History: Denies: Hx Hepatitis Past Surgical History: Reports: Hx Section - x 1, Hx Cholecystectomy, Hx Oral Surgery - wisdom teeth, Hx Tonsillectomy, Hx Tubal Ligation. Denies: Hx Hysterectomy, Hx Mastectomy, Hx Open Heart Surgery, Hx Pacemaker - Immunizations Hx Diphtheria, Pertussis, Tetanus Vaccination: No Physical Exam - Vital signs Vitals: Temp Pulse Resp BP Pulse Ox 98.0 F 64 18 174/110 H 100 08/24/19 19:53 08/24/19 19:53 08/24/19 19:53 08/24/19 19:53 08/24/19 19:53 - HEENT Head: Normocephalic Eyes: Normal Conjunctiva: Normal Cornea: Normal Pupils: PERRL Course - Re-evaluation Re-evalutation: 08/24/19 21:27 I have greeted and performed a rapid initial assessment of this patient. A comprehensive ED assessment and evaluation of the patient, analysis of test results and completion of the medical decision making process will be conducted by additional ED providers. - Vital Signs Vital signs: Temp Pulse Resp BP Pulse Ox 98.0 F 64 18 174/110 H 100 08/24/19 19:53 08/24/19 19:53 08/24/19 19:53 08/24/19 19:53 08/24/19 19:53 Doctor's Discharge - Discharge Referrals: ROXANN SHIRLEY MD [Primary Care Provider] - Follow up as needed
--- NOTE | 2019-08-24 22:21 | ER Document Report ---
ED General - General Chief Complaint: Headache Stated Complaint: HEADAHCE Time Seen by Provider: 08/24/19 21:22 Primary Care Provider: ROXANN SHIRLEY MD [Primary Care Provider] - Follow up as needed TRAVEL OUTSIDE OF THE [place] IN LAST 30 DAYS: No - HPI Patient complains to provider of: headache Notes: 34 y/o presenting to ED for evaluation of headache she reports a h/o migraines since she was a teenager she denies fever, neck stiffness, vomiting no arm/leg weakness or numbness the headache is a bilateral and both front and back throbbing pain it is fairly severe to her but similar to previous headaches she denies vision/gait changes she has tried multiple otc meds over last 24 hours w/o relief headache started approx 24 hours ago she denies chance of with normal periods that have started since having baby in May she is on oral control pills and compliant - Related Data Allergies/Adverse Reactions: No Known Allergies Allergy (Verified 05/08/19 18:06) Home Medications: maxalt. valtrex. cyclafem (BCPs) Past Medical History - Social History Smoking Status: Never Smoker Chew tobacco use (# tins/day): No Frequency of alcohol use: Occasional Drug Abuse: None Family History: Reviewed & Not Pertinent Patient has suicidal ideation: No Patient has homicidal ideation: No - Past Medical History Cardiac Medical History: Denies: Hx Heart Attack, Hx Hypertension Pulmonary Medical History: Denies: Hx Asthma Neurological Medical History: Reports: Hx Migraine, Hx Seizures - pnuemonia 2/3years old, had seizure X1. Denies: Hx Cerebrovascular Accident Renal/ Medical History: Denies: Hx Peritoneal Dialysis GI Medical History: Denies: Hx Hepatitis, Hx Hiatal Hernia, Hx Ulcer Infectious Medical History: Denies: Hx Hepatitis Past Surgical History: Reports: Hx Section - x 1, Hx Cholecystectomy, Hx Oral Surgery - wisdom teeth, Hx Tonsillectomy, Hx Tubal Ligation. Denies: Hx Hysterectomy, Hx Mastectomy, Hx Open Heart Surgery, Hx Pacemaker - Immunizations Hx Diphtheria, Pertussis, Tetanus Vaccination: No Review of Systems - Review of Systems Constitutional: No symptoms reported EENT: No symptoms reported Cardiovascular: No symptoms reported Respiratory: No symptoms reported Gastrointestinal: No symptoms reported Genitourinary: No symptoms reported Female Genitourinary: No symptoms reported Musculoskeletal: No symptoms reported Skin: No symptoms reported Hematologic/Lymphatic: No symptoms reported Neurological/Psychological: Headaches Physical Exam - Vital signs Vitals: Temp Pulse Resp BP Pulse Ox 98.0 F 64 18 174/110 H 100 08/24/19 19:53 08/24/19 19:53 08/24/19 19:53 08/24/19 19:53 08/24/19 19:53 Interpretation: Normal - General General appearance: Appears well, Alert - HEENT Head: Normocephalic, Atraumatic Eyes: Normal Pupils: PERRL Sinus: Normal. No: Tenderness Mucous membranes: Moist Pharynx: Normal Neck: Normal. No: Lymphadenopathy, Meningismus - Respiratory Respiratory status: No respiratory distress Chest status: Nontender Breath sounds: Normal Chest palpation: Normal - Cardiovascular Rhythm: Regular Heart sounds: Normal auscultation Murmur: No - Abdominal Inspection: Normal Distension: No distension Bowel sounds: Normal Tenderness: Nontender Organomegaly: No organomegaly - Back Back: Normal, Nontender - Extremities General upper extremity: Normal inspection, Nontender, Normal color, Normal ROM, Normal temperature General lower extremity: Normal inspection, Nontender, Normal color, Normal ROM, Normal temperature, Normal weight bearing. No: Kiana's sign - Neurological Neuro grossly intact: Yes Cognition: Normal Orientation: AAOx4 Nancy Coma Scale Eye Opening: Spontaneous Nancy Coma Scale Verbal: Oriented Nancy Coma Scale Motor: Obeys Commands Nancy Coma Scale Total: 15 Speech: Normal Cranial nerves: Normal Cerebellar coordination: Normal Motor strength normal: LUE, RUE, LLE, RLE Additional motor exam normals: Equal strainer cleaner Sensory: Normal - Psychological Associated symptoms: Normal affect, Normal mood - Skin Skin Temperature: Warm Skin Moisture: Dry Skin Color: Normal Course - Re-evaluation Re-evalutation: 08/24/19 22:58 neuro intact w/o meningismus will treat w/ im migraine cocktail and re-assess for response to treatment 08/24/19 23:29 improved w/ migraine cocktail dc w/ pcp follow up 08/25/19 00:09 BP has been elevated here but improving w/ pain control discussed need for recheck of bp as outpt - Vital Signs Vital signs: Temp Pulse Resp BP Pulse Ox 98.1 F 73 17 149/101 H 98 08/24/19 23:43 08/24/19 23:43 08/24/19 23:43 08/24/19 23:43 08/24/19 23:43 Discharge - Discharge Clinical Impression: Elevated blood pressure reading Headache Qualifiers: Headache type: unspecified Headache chronicity pattern: acute headache Intractability: not intractable Qualified Code(s): R51 - Headache Condition: Stable Disposition: HOME, SELF-CARE Instructions: Headache ([facility]) Additional Instructions: follow up with primary doctor recheck BP daily for the next 5-7 days return to ED with worsening Forms: Elevated Blood Pressure Referrals: ROXANN SHIRLEY MD [Primary Care Provider] - Follow up as needed
[2019-08-24] MEDS ORDERED: DIPHENHYDRAMINE HCL 50 MG/ML VIAL IM ONE (22:25)
[2019-08-24] MEDS ORDERED: KETOROLAC TROMETHAMINE INJ/PF 30 MG/1 ML SDV IM ONE (22:25)
[2019-08-24] MEDS ORDERED: METOCLOPRAMIDE HCL INJ/PF 10 MG/2 ML SDV IM ONE (22:26)
[2019-08-25 00:06] VITALS: BP 149/101
== END 2019-08-25 00:15 | disposition home or self-care (01) ==
LOC: ER 19:25
DX: G43.909 Migraine, unspecified, not intractable, without status migrainosus (principal); Z79.899 Other long term (current) drug therapy; R03.0 Elevated blood-pressure reading, without diagnosis of hypertension; Z79.3 Long term (current) use of hormonal contraceptives; Z86.69 Personal history of other diseases of the nervous system and sense organs
CPT/HCPCS: J1200; J1885; J2765

== ENCOUNTER 2020-03-07 19:10 | Emergency (ER) | payer MEDICAID ==
[2020-03-07 19:17] VITALS: BP 196/135
== END 2020-03-07 22:45 | disposition left against medical advice (07) ==
LOC: ER 19:10
DX: Z53.29 Procedure and treatment not carried out because of patient's decision for other reasons (principal); R06.02 Shortness of breath

== ENCOUNTER 2020-05-12 10:15 | Emergency (ER) | payer MEDICAID ==
[2020-05-12 10:24] VITALS: BP 134/73
--- NOTE | 2020-05-12 11:16 | ER Document Report ---
HPI - HPI Time Seen by Provider: 05/12/20 11:11 Notes: CHIEF COMPLAINT: Left heel injury HPI: 35-year-old female presenting to the emergency department primarily complaining of injury to the left heel region of the foot. Patient was stepping down off a small stool when it wobbled and she came down on the heel with all of her weight. Complains of pain with walking. Denies numbness or tingling in the toes. Also complains of pain of the lateral aspect of the left lower leg. ROS: See HPI - all other systems were reviewed and are otherwise negative Constitutional: no fever Integumentary: no rash Allergy: no hives Musculoskeletal: + extremity pain or swelling Neurological: no numbness/tingling MEDICATIONS: I agree with the patient medications as charted by the RN. ALLERGIES: I agree with the allergies as charted by the RN. PAST MEDICAL HISTORY/PAST SURGICAL HISTORY: Reviewed and agree as charted by RN. SOCIAL HISTORY: Reviewed and agree as charted by RN. FAMILY HISTORY: No significant familial comorbid conditions directly related to patient complaint EXAM: Reviewed vital signs as charted by RN. CONSTITUTIONAL: Alert and oriented and responds appropriately to questions. Well-appearing; well-nourished HEAD: Normocephalic; atraumatic EYES: Conjunctivae clear, sclerae non-icteric ENT: normal nose; no rhinorrhea; moist mucous membranes NECK: Supple without meningismus CARD: symmetric distal pulses RESP: Normal chest excursion without splinting or tachypnea ABD/GI: non-distended. BACK: The back appears normal EXT: No visible soft tissue swelling or bruising to the calcaneal region of the left foot but there is tenderness over the calcaneus of the left foot. No tenderness over the tarsals metatarsals of the left foot on palpation. Mild tenderness at the lateral aspect of the left lower leg although not directly over the fibular head on palpation. Dorsalis pedis and posterior tibial pulses are present in the left foot and ankle. Sensation is intact in the toes with capillary refill less than 3 seconds SKIN: Normal color for age and race; warm; dry; good turgor; no acute lesions noted NEURO: Moves all extremities equally; Motor and sensory function intact PSYCH: The patient's mood and manner are appropriate. Grooming and personal hygiene are appropriate. MDM: 35-year-old female with pain to the lateral left lower leg, calcaneal region, will obtain x-ray to evaluate for fracture - REPRODUCTIVE Reproductive: DENIES: : Past Medical History - Social History Smoking Status: Unknown if Ever Smoked Family History: Reviewed & Not Pertinent - Past Medical History Cardiac Medical History: Denies: Hx Heart Attack, Hx Hypertension Pulmonary Medical History: Denies: Hx Asthma Neurological Medical History: Reports: Hx Migraine, Hx Seizures - pnuemonia 2/3years old, had seizure X1. Denies: Hx Cerebrovascular Accident Renal/ Medical History: Denies: Hx Peritoneal Dialysis GI Medical History: Denies: Hx Hepatitis, Hx Hiatal Hernia, Hx Ulcer Infectious Medical History: Denies: Hx Hepatitis Past Surgical History: Reports: Hx Section - x 1, Hx Cholecystectomy, Hx Oral Surgery - wisdom teeth, Hx Tonsillectomy, Hx Tubal Ligation. Denies: Hx Hysterectomy, Hx Mastectomy, Hx Open Heart Surgery, Hx Pacemaker - Immunizations Hx Diphtheria, Pertussis, Tetanus Vaccination: No Vertical Provider Document - INFECTION CONTROL TRAVEL OUTSIDE OF THE [place] IN LAST 30 DAYS: No Course - Re-evaluation Re-evalutation: 05/12/20 12:07 X-ray imaging does not reveal evidence of a fracture in the heel foot or lower leg. Will treat symptomatically, crutches, limited weightbearing, anti- inflammatories orthopedic follow-up - Vital Signs Vital signs: Temp Pulse Resp BP Pulse Ox 98.1 F 86 16 134/73 H 98 05/12/20 10:23 05/12/20 10:23 05/12/20 10:23 05/12/20 10:23 05/12/20 10:23 Procedures - Immobilization Left Foot Time completed: 12:27 Pre-Proc Neuro Vasc Exam: Normal Immobilizer type: Tunde wrap, Crutches Performed by: PCT Post-Proc Neuro Vasc Exam: Normal, Unchanged from pre-exam Alignment checked and good: Yes Discharge - Discharge Clinical Impression: Contusion of foot, left Qualifiers: Encounter type: initial encounter Qualified Code(s): S90.32XA - Contusion of left foot, initial encounter Heel spur Qualifiers: Laterality: left Qualified Code(s): M77.32 - Calcaneal spur, left foot Condition: Stable Disposition: HOME, SELF-CARE Instructions: Contusion ([facility]) Additional Instructions: Tunde wrap for comfort. Weightbearing as tolerated. Ice to the heel is much as possible. Follow-up with orthopedics for further evaluation and treatment. Take the anti-inflammatories to help with pain and inflammation. X-ray did not reveal evidence of a fracture Prescriptions: Diclofenac Sodium [Voltaren 50 Mg Tablet.] 50 mg PO BID #20 tablet. Referrals: FLORENCIO LE MD [ACTIVE STAFF] - Follow up as needed
--- NOTE | 2020-05-12 12:04 | RADIOLOGY REPORT (SQ) ---
EXAM DESCRIPTION: OS CALCIS/HEEL LEFT IMAGES COMPLETED DATE/TIME: 05/12/2020 11:54 am REASON FOR STUDY: fall COMPARISON: None. NUMBER OF VIEWS: Two views. TECHNIQUE: Plantar and lateral images acquired of the left calcaneous. LIMITATIONS: None. FINDINGS: MINERALIZATION: Normal. BONES: No acute fracture or dislocation. Prominent plantar calcaneal spur. No worrisome bone lesion s. JOINTS: No effusions. SOFT TISSUES: No soft tissue swelling. No foreign body. OTHER: No other significant finding. IMPRESSION: PROMINENT HEEL SPUR. NO RADIOGRAPHIC EVIDENCE OF ACUTE INJURY. TECHNICAL DOCUMENTATION: JOB ID: [id number] 2010 [employer]- All Rights Reserved Reading location - IP/workstation name: [email or web address]
--- NOTE | 2020-05-12 12:05 | RADIOLOGY REPORT (SQ) ---
EXAM DESCRIPTION: FOOT LEFT COMPLETE IMAGES COMPLETED DATE/TIME: 05/12/2020 11:54 am REASON FOR STUDY: fall COMPARISON: None. NUMBER OF VIEWS: Three views. TECHNIQUE: AP, lateral and oblique radiographic images acquired of the left foot. LIMITATIONS: None. FINDINGS: MINERALIZATION: Normal. BONES: No acute fracture or dislocation. Prominent plantar calcaneal spur. No worrisome bone lesion s. JOINTS: No effusions. SOFT TISSUES: No soft tissue swelling. No foreign body. OTHER: No other significant finding. IMPRESSION: HEEL SPUR. NO RADIOGRAPHIC EVIDENCE OF ACUTE INJURY. TECHNICAL DOCUMENTATION: JOB ID: [id number] 2010 [employer]- All Rights Reserved Reading location - IP/workstation name: [email or web address]
--- NOTE | 2020-05-12 12:06 | RADIOLOGY REPORT (SQ) ---
EXAM DESCRIPTION: TIBIA FIBULA LEFT IMAGES COMPLETED DATE/TIME: 05/12/2020 11:54 am REASON FOR STUDY: fall COMPARISON: None. NUMBER OF VIEWS: Two views. TECHNIQUE: Two radiographic images acquired of the left tibia and fibula to include the knee and ank le in at least one projection. LIMITATIONS: None. FINDINGS: MINERALIZATION: Normal. BONES: No acute fracture or dislocation. No worrisome bone lesions. SOFT TISSUES: No obvious swelling or foreign body. OTHER: No other significant finding. IMPRESSION: NEGATIVE STUDY OF THE LEFT TIBIA AND FIBULA. NO RADIOGRAPHIC EVIDENCE OF ACUTE INJURY. TECHNICAL DOCUMENTATION: JOB ID: [id number] 2010 [employer]- All Rights Reserved Reading location - IP/workstation name: [email or web address]
[2020-05-12] MEDS ORDERED: NAPROXEN 250 MG TABLET PO ONE (12:08)
== END 2020-05-12 12:39 | disposition home or self-care (01) ==
LOC: ER 10:15
DX: S90.32XA Contusion of left foot, initial encounter (principal); W08.XXXA Fall from other furniture, initial encounter; Y93.89 Activity, other specified; M77.32 Calcaneal spur, left foot; Z79.899 Other long term (current) drug therapy
CPT/HCPCS: 99283; 73630; 73650; 73590; J3490

== ENCOUNTER 2020-10-26 16:13 | Emergency (ER) | payer MEDICAID ==
[2020-10-26 16:30] VITALS: BP 122/82
--- NOTE | 2020-10-26 17:03 | ER Document Report ---
ED Respiratory Problem - General Chief Complaint: Cough Stated Complaint: COUGH,CONGESTION,DIARREAH Time Seen by Provider: 10/26/20 16:45 Primary Care Provider: MITESH CAPUTO MD [Primary Care Provider] - Follow up as needed Mode of Arrival: Ambulatory Information source: Patient TRAVEL OUTSIDE OF THE [place] IN LAST 30 DAYS: No - HPI Patient complains to provider of: Cough Notes: Patient here with complaints of congestion, cough and diarrhea. Symptoms started today. Patient is also being seen with her 1-year-old son who has some similar symptoms. Patient denies any abdominal pain. No nausea or vomiting. No fever. No dysuria or hematuria. No severe chest pain or shortness of breath. No difficulty breathing. No new rashes. No numbness, tingling, weakness. Patient reports she was exposed to 3 different people over the last 3 weeks at work who are positive for Covid. She denies any other symptoms or complaints at this time. - Related Data Allergies/Adverse Reactions: No Known Allergies Allergy (Verified 10/26/20 16:46) Home Medications: valtrex. lisinopril. maxaly. imgalidi Past Medical History - Social History Smoking Status: Never Smoker Chew tobacco use (# tins/day): No Frequency of alcohol use: Occasional Drug Abuse: None Family History: Reviewed & Not Pertinent - Past Medical History Cardiac Medical History: Denies: Hx Heart Attack, Hx Hypertension Pulmonary Medical History: Denies: Hx Asthma Neurological Medical History: Reports: Hx Migraine, Hx Seizures - pnuemonia 2/3years old, had seizure X1. Denies: Hx Cerebrovascular Accident Renal/ Medical History: Denies: Hx Peritoneal Dialysis GI Medical History: Denies: Hx Hepatitis, Hx Hiatal Hernia, Hx Ulcer Infectious Medical History: Denies: Hx Hepatitis Past Surgical History: Reports: Hx Section - x 1, Hx Cholecystectomy, Hx Oral Surgery - wisdom teeth, Hx Tonsillectomy, Hx Tubal Ligation. Denies: Hx Hysterectomy, Hx Mastectomy, Hx Open Heart Surgery, Hx Pacemaker - Immunizations Hx Diphtheria, Pertussis, Tetanus Vaccination: No Review of Systems - Review of Systems -: Yes All other systems reviewed and negative Physical Exam - Vital signs Vitals: Temp Pulse Resp BP Pulse Ox 98.4 F 74 18 122/82 97 10/26/20 16:17 10/26/20 16:17 10/26/20 16:17 10/26/20 16:17 10/26/20 16:17 - Notes Notes: GENERAL: alert, cooperative, nontoxic, no distress. HEAD: normocephalic, atraumatic EYES: conjunctiva pink without discharge, no external redness or swelling. EARS: no external swelling, no external redness, no mastoid redness, swelling, tenderness. Ear canals are clear without swelling or drainage. TMs pearly myers, no redness, no bulging, normal landmarks, no perforation. NOSE: atraumatic, no external swelling. clear rhinorrhea noted. MOUTH/THROAT: mucous membranes moist and pink, posterior pharynx without erythema, swelling, exudate. No trismus or drooling. Voice is normal, no stridor. NECK: soft, supple, full range of motion, no meningismus. ABDOMINAL: Soft, round, nontender to palpation. Bowel sounds present. No rebound tenderness or guarding. CHEST: no distress, lungs clear and equal throughout. No wheezing, rales, rhonchi. CARDIAC: regular rate and rhythm, no murmur EXTREMITIES: full range of motion of all extremities. No redness, no swelling. NEURO: alert and oriented A&O3, no focal deficits, full range of motion of all extremities. PYSCH: appropriate mood, affect. Patient is cooperative. SKIN: pink, warm, dry, no rash. Course - Re-evaluation Re-evalutation: 10/26/20 17:11 Patient is nontoxic-appearing stable vitals. Here with complaints of nasal congestion, mild cough and some mild diarrhea which started earlier today. No abdominal pain. She has no abdominal tenderness on exam. Her vital signs are stable, she is not hypoxic or tachypneic. She denies any chest pain or shortness of breath. She was exposed to 3 different people over the last 3 weeks who were positive for Covid and she would like to be tested. Overall the patient looks well. No believe any further extensive work-up is indicated as the patient has a completely benign exam with stable vitals. Covid swab has been obtained. Patient is instructed to quarantine until she receives her results. If positive, she should quarantine for 10 days. She should follow-up if she develops severe pain, persistent vomiting, blood in her stools, chest pain or shortness of breath, persistent vomiting, or for any further concerns. The patient's emergency department workup and current diagnosis were explained to the patient and or family. Follow-up instructions were provided. Medications if prescribed were discussed. Instructions for when to return to the emergency department including specific worrisome symptoms were discussed with the patient and/or family. - Vital Signs Vital signs: Temp Pulse Resp BP Pulse Ox 98.4 F 74 18 122/82 97 10/26/20 16:17 10/26/20 16:17 10/26/20 16:17 10/26/20 16:17 10/26/20 16:17 - Laboratory Results Critical Laboratory Results Reviewed: No Critical Results - Radiology Results Critical Radiology Results Reviewed: No Critical Results Discharge - Discharge Clinical Impression: Viral syndrome, Person under investigation for COVID-19 Diarrhea Qualifiers: Diarrhea type: unspecified type Qualified Code(s): R19.7 - Diarrhea, u nspecified Condition: Stable Disposition: HOME, SELF-CARE Instructions: COVID-19 Guidance for Persons Under Investigation, Viral Syndrome ([facility]) Additional Instructions: Tylenol or Motrin as needed for pain or fever. Drink plenty fluids. You can take [id number] zinc and vitamin C if you would like. You should quarantine until you receive your results. If your results are negative and you are feeling better, you can resume work. If your results are negative but you are feeling worse, I would recommend being rechecked. If your results are positive, you should quarantine for at least 10 days. Follow-up sooner if you are having any significant chest pain, shortness of breath severe abdominal pain, blood in your stool, persistent vomiting, or any further concerns. Forms: Return to Work Referrals: MITESH CAPUTO MD [Primary Care Provider] - Follow up as needed
== END 2020-10-26 17:26 | disposition home or self-care (01) ==
LOC: ER 16:13
DX: U07.1 COVID-19 (principal); R05 Cough; R19.7 Diarrhea, unspecified; R09.81 Nasal congestion; G43.909 Migraine, unspecified, not intractable, without status migrainosus; Z79.899 Other long term (current) drug therapy
CPT/HCPCS: 99283; 36415; 87635; C9803